=== PATIENT | male | born 1950 | race Caucasian/White ===

== ENCOUNTER → 2016-08-09 | Outpatient (CLI) | payer OTHER ==
--- NOTE | 2016-08-09 12:47 | EST ---
DATE OF SERVICE: 08/09/2016 AGE: 66Y SEX: M HT: 63" WT: 178 lbs. Protocol Daniel: X Other: Stress Stage: 2 Dur. of Exercise: 7:00 *Heart Rate Blood Pressure *Rest: 73 Rest: 148/94 * *Max. Achieved: 143 Maximum BP: 222/91 85% PMHR: 133 100% PMHR: 156 *METS: 8.3 INDICATIONS: Abnormal EKG. MEDICATIONS: Atorvastatin, Clonidine, acetaminophen, lamotrigine, lisinopril, metoprolol, sertraline, trazodone. Baseline EKG revealed a sinus mechanism with some baseline artifact. Patient walked on standard Daniel protocol for 7 minutes, achieved a maximum heart rate of 143 beats per minute, which is more than 85% of predicted maximal. He did not have any significant symptoms, ( ) chest discomfort but had shortness of breath. EKG did not reveal any ST segment changes to indicate ischemia. There was no arrhythmia. By EKG criteria, this is considered as a negative stress test with a hypertensive response to exercise. Patient did not have any subjective symptoms of angina. Exercise capacity was fair.
== END | disposition home or self-care (01) ==
LOC: RADNMMAIN 10:49
PROVIDERS: ATTEND Family Medicine
DX: R94.31 Abnormal electrocardiogram [ECG] [EKG] (principal); R06.02 Shortness of breath
CPT/HCPCS: 93017

== ENCOUNTER 2018-06-13 11:27 | Inpatient (IN) | payer MEDICARE, OTHER ==
--- NOTE | 2018-06-13 12:00 | ED ---
General Adult HPI - General Chief complaint: Psychiatric Symptoms Stated complaint: Mental health Time Seen by Provider: 06/13/18 11:30 Source: patient, family, RN notes reviewed Mode of arrival: ambulatory Limitations: no limitations - History of Present Illness Initial comments: This is a 68-year-old male who presents emergency Department complaining of depression and suicidal ideations. Patient states she's been depressed for 40+ years. Patient states he has stopped taking his depression medications few months ago. Patient states he is been feeling very suicidal for the last few days and thought he might actually do it and it was at this point time that his brought him into the emergency department. Patient denies any physical complaints today patient denies any issues that have come up in his life that are specifically cause him to be more suicidal. Patient states it's just an overall feeling of dissatisfaction with life and he would like to end it all. Patient has no previous attempts. Patient denies any alcohol use patient denies any drug use. - Related Data Home Medications Medication Instructions Recorded Confirmed Lisinopril 20 mg PO DIRECTED 06/13/18 06/13/18 Allergies Allergy/AdvReac Type Severity Reaction Status Date / Time No Known Allergies Allergy Verified 06/13/18 11:56 Review of Systems ROS Statement: Those systems with pertinent positive or pertinent negative responses have been documented in the HPI. ROS Other: All systems not noted in ROS Statement are negative. Past Medical History Past Medical History: Diabetes Mellitus, Hypertension, Osteoarthritis (OA), Sleep Apnea/CPAP/BIPAP Additional Past Medical History / Comment(s): PAST HX OF SLEEP APNEA-NO PROBLEM NOW, HX OF DIABETES-NO MEDS NOW, electric shock treatments for depression History of Any Multi-Drug Resistant Organisms: None Reported Past Surgical History: Hernia Repair, Joint Replacement, Orthopedic Surgery Additional Past Surgical History / Comment(s): 03/12/16 total R knee arthroplasty. Other surgical hx; ABDOMINAL HERNIA REPAIR , LEFT SHOULDER REPAIR, CRISTIAN INGUINAL HERNIA, TOTAL LEFT KNEE. Past Anesthesia/Blood Transfusion Reactions: No Reported Reaction Past Psychological History: Anxiety, Bipolar, Depression, Panic Disorder Smoking Status: Current every day smoker Past Alcohol Use History: None Reported - Past Family History Father Family Medical History: Deep Vein Thrombosis (DVT) Additional Family Medical History / Comment(s): alcoholism- age 50's Mother Additional Family Medical History / Comment(s): born w/ 1 lung, during childbirth. General Exam - General Exam Comments Initial Comments: GENERAL: Patient is well-developed and well-nourished. Patient is nontoxic and well- hydrated and is in no acute distress ENT: Neck is soft and supple. No significant lymphadenopathy is noted. Oropharynx is clear. Moist mucous membranes. EYES: The sclera were anicteric and conjunctiva were pink and moist. Extraocular movements were intact and pupils were equal round and reactive to light. Eyelids were unremarkable. PULMONARY: Unlabored respirations. Good breath sounds bilaterally. No audible rales rhonchi or wheezing was noted. CARDIOVASCULAR: There is a regular rate and rhythm without any murmurs gallops or rubs. ABDOMEN: Soft and nontender with normal bowel sounds. SKIN: Skin is clear with no lesions or rashes and otherwise unremarkable. NEUROLOGIC: Patient is alert and oriented x3. Cranial nerves II through XII are grossly intact. Motor and sensory are also intact. Normal speech, volume and content. MUSCULOSKELETAL: Normal extremities with adequate strength and full range of motion. LYMPHATICS: No significant lymphadenopathy is noted PSYCHIATRIC: Patient complains of being depressed and wanting to harm himself. Patient thinks today he might have actually tried to commit suicide. Limitations: no limitations Course Vital Signs 06/13/18 11:31 Temperature 98 F Pulse Rate 110 H Respiratory 18 Rate Blood Pressure 177/108 O2 Sat by Pulse 94 L Oximetry Medical Decision Making - Medical Decision Making EPS evaluated the patient and decided the patient needed to be admitted. - Lab Data Result diagrams: 06/13/18 12:09 06/13/18 12:09 Lab Results 06/13/18 06/13/18 06/13/18 Range/Units 11:53 12:09 12:09 WBC 10.8 H (3.8-10.6) k/uL RBC 5.62 (4.30-5.90) m/uL Hgb 17.3 (13.0-17.5) gm/dL Hct 53.9 H (39.0-53.0) % MCV 95.9 (80.0-100.0) fL MCH 30.8 (25.0-35.0) pg MCHC 32.2 (31.0-37.0) g/dL RDW 12.9 (11.5-15.5) % Plt Count 293 (150-450) k/uL Neutrophils % 66 % Lymphocytes % 24 % Monocytes % 7 % Eosinophils % 1 % Basophils % 1 % Neutrophils # 7.1 (1.3-7.7) k/uL Lymphocytes # 2.6 (1.0-4.8) k/uL Monocytes # 0.7 (0-1.0) k/uL Eosinophils # 0.1 (0-0.7) k/uL Basophils # 0.1 (0-0.2) k/uL Sodium 140 (137-145) mmol/L Potassium 4.5 (3.5-5.1) mmol/L Chloride 109 H (98-107) mmol/L Carbon Dioxide 21 L (22-30) mmol/L Anion Gap 10 mmol/L BUN 16 (9-20) mg/dL Creatinine 0.89 (0.66-1.25) mg/dL Est GFR (CKD-EPI)AfAm >90 (>60 ml/min/1.73 sqM) Est GFR (CKD-EPI)NonAf 89 (>60 ml/min/1.73 sqM) Glucose 100 H (74-99) mg/dL Calcium 9.5 (8.4-10.2) mg/dL Total Bilirubin 1.0 (0.2-1.3) mg/dL AST 21 (17-59) U/L ALT 27 (21-72) U/L Alkaline Phosphatase 83 (38-126) U/L Total Protein 7.2 (6.3-8.2) g/dL Albumin 4.1 (3.5-5.0) g/dL Urine Opiates Screen Not Detected (NotDetected) Ur Oxycodone Screen Not Detected (NotDetected) Urine Methadone Screen Not Detected (NotDetected) Ur Propoxyphene Screen Not Detected (NotDetected) Ur Barbiturates Screen Not Detected (NotDetected) U Tricyclic Antidepress Not Detected (NotDetected) Ur Phencyclidine Scrn Not Detected (NotDetected) Ur Amphetamines Screen Not Detected (NotDetected) U Methamphetamines Scrn Not Detected (NotDetected) U Benzodiazepines Scrn Not Detected (NotDetected) Urine Cocaine Screen Not Detected (NotDetected) U Marijuana (THC) Screen Not Detected (NotDetected) Disposition Clinical Impression: Suicidal ideation, Depression Disposition: ADMITTED IP TO THIS HOSP Referrals: Hossein Mccord DO [Primary Care Provider] - 1-2 days Time of Disposition: 15:30
[2018-06-13 12:35] LABS: Amphetamine Screen,Urine Not Detected (NotDetected); Barbiturate Screen,Urine Not Detected (NotDetected); Benzodiazepines Screen,Urine Not Detected (NotDetected); Cocaine Screen,Urine Not Detected (NotDetected); Methadone Screen, Urine Not Detected (NotDetected); Opiate Screen,Urine Not Detected (NotDetected); Oxycodone Screen, Urine Not Detected (NotDetected); Phencyclidine Screen,Urine Not Detected (NotDetected); Tricyclic Antidepressant,Urine Not Detected (NotDetected); Urn Cannabinoid Scrn Not Detected (NotDetected)
[2018-06-13 12:56] LABS: Basophils # (A) 0.1 k/uL (0-0.2); Basophils % (A) 1 %; Eosinophils # (A) 0.1 k/uL (0-0.7); Eosinophils % (A) 1 %; HCT 53.9 % (39.0-53.0); HGB 17.3 gm/dL (13.0-17.5); Lymphocytes # (A) 2.6 k/uL (1.0-4.8); Lymphocytes % (A) 24 %; MCH 30.8 pg (25.0-35.0); MCHC 32.2 g/dL (31.0-37.0); MCV 95.9 fL (80.0-100.0); Mean Platelet Volume 7.2; Monocytes # (A) 0.7 k/uL (0-1.0); Monocytes % (A) 7 %; Neutrophils # (A) 7.1 k/uL (1.3-7.7); Neutrophils % (A) 66 %; Platelet Count 293 k/uL (150-450); RBC 5.62 m/uL (4.30-5.90); RDW 12.9 % (11.5-15.5); WBC 10.8 k/uL (3.8-10.6)
[2018-06-13 13:09] LABS: Albumin 4.1 g/dL (3.5-5.0); Anion Gap 10 mmol/L; Blood Urea Nitrogen 16 mg/dL (9-20); Calcium 9.5 mg/dL (8.4-10.2); Carbon Dioxide 21 mmol/L (22-30); Chloride 109 mmol/L (98-107); Glucose 100 mg/dL (74-99); Sodium 140 mmol/L (137-145); Total Protein 7.2 g/dL (6.3-8.2)
[2018-06-13 13:12] LABS: ALT 27 U/L (21-72); AST 21 U/L (17-59); Alkaline Phosphatase 83 U/L (38-126); Potassium 4.5 mmol/L (3.5-5.1)
[2018-06-13] MEDS ORDERED: LORazepam 1 MG TAB PO STA ×2 (15:27→19:33)
[2018-06-13] MEDS: NICOTINE POLACRILEX 2 MG GUM BUCCAL PRN ×2 (16:47→22:16)
[2018-06-13] MEDS ORDERED: ACETAMINOPHEN TAB 325 MG TAB PO PRN (17:05)
[2018-06-13] MEDS ORDERED: LISINOPRIL 20 MG TAB PO SCH (17:15)
[2018-06-13] MEDS ORDERED: ZIPRASIDONE 20 MG VIAL IM PRN (19:34)
[2018-06-13] MEDS ORDERED: QUEtiapine 50 MG TAB PO STA (22:32)
[2018-06-13] MEDS: NICOTINE 21MG/24HR PATCH TRANSDERM SCH (23:04)
[2018-06-13] MEDS: TAMSULOSIN 0.4 MG CAP.ER.24H PO SCH (23:05)
[2018-06-13] MEDS: LISINOPRIL-HCTZ 10-12.5 MG 1 EACH TAB PO SCH (23:05)
--- NOTE | 2018-06-14 05:49 | CONS ---
CONSULTATION DATE OF CONSULTATION: 06/13/2018 REASON FOR CONSULTATION: Medical management requested by Dr. Brown. CONSULTATION: This is a 68-year-old patient of Dr. Mccord. His chronic stable medical conditions include hypertension, osteoarthritis, BPH. The patient lives with several family members including his son, son's girlfriend, and other grandchildren and other family member and patient is getting overwhelmed. His left the house as she had to take care of everybody and patient is getting very frustrated, depressed, suicidal, and therefore decided to come to the hospital. The patient has been smoking a pack a day. The patient ran out of his Flomax about 3 or 4 days ago, request the same. Breathing is stable. Appetite is fair. Just very agitated and does not want to go back there. REVIEW OF SYSTEMS: CONSTITUTIONAL: None. HEENT: None. RESPIRATORY: Occasional cough CARDIOVASCULAR: None. GASTROINTESTINAL: None. GENITOURINARY: None. MUSCULOSKELETAL: Arthritic pain in different joints. DERMATOLOGICAL: None. HEMATOLOGIC: None. LYMPHATIC: None. PSYCHIATRY: Anxious, depressed. NEUROLOGICAL: None. PAST MEDICAL HISTORY: Past medical history of diabetes, hypertension, osteoarthritis, also sleep apnea not a problem anymore. The patient has had a electric shocks for treatment of depression in the past. PAST SURGICAL HISTORY: Hernia repair, right total knee arthroplasty, abdominal hernia repair, left shoulder repair, bilateral inguinal hernia repair, total left knee repair. PAST PSYCH HISTORY: Bipolar disorder. Patient smokes a pack a day for over 45 years. Had a history of alcoholism in the remote past. Living with several family members. FAMILY HISTORY: Family history of alcoholism and DVT. HOME MEDICATIONS: List is unclear. PHYSICAL EXAMINATION: On examination, temperature 99.9, pulse 93, respiratory 18, blood pressure 163/105, repeat 144/95, pulse ox 91% on room air. GENERAL APPEARANCE: Well built, BMI 32.8, somewhat agitated. EYES: Pupils equal. Conjunctivae normal. HENT: External appearance of nose and ear normal. Oral cavity normal. NECK: JVD not raised. Mass not palpable. RESPIRATORY: Effort normal. Slightly decreased breath sounds. CARDIOVASCULAR: First and second sounds normal. No edema. ABDOMEN: Soft, nontender. Liver and spleen not palpable. LYMPHATIC: No lymph node palpable in the neck or axillae. PSYCHIATRY: Alert and oriented x3. Mood and affect very anxious appearing. NEUROLOGICAL: Pupils equal. Cranial nerves grossly intact. Power and sensation grossly intact. INVESTIGATIONS: White count 10.8, hemoglobin 17.3, potassium 4.5, BUN 16, creatinine 0.89. Urine drug screen negative. ASSESSMENT: 1. Essential hypertension, uncontrolled from not taking his medication. 2. Primary osteoarthritis. 3. Chronic nicotine dependence. Patient is a cigarette smoker. 4. Benign prostatic hypertrophy. PLAN: Will start the patient on lisinopril hydrochlorothiazide twice a day. Also start the patient on a baby aspirin. Start the patient on Flomax 0.4 mg q.h.s. The patient will be given a nicotine patch. Care was discussed with the patient. Questions were answered. Patient should follow up with Dr. Mccord upon discharge. Thank you . PHILIP / OLEGARION: [id number] /
[2018-06-14] MEDS: ASPIRIN 81 MG PO SCH (08:42)
[2018-06-14] MEDS: NICOTINE POLACRILEX 2 MG GUM BUCCAL PRN ×4 (08:43→20:52)
[2018-06-14] MEDS: LISINOPRIL-HCTZ 10-12.5 MG 1 EACH TAB PO SCH ×2 (08:43→20:49)
[2018-06-14 09:15] LABS: Basophils % (A) 0 %; Eosinophils # (A) 0.4 k/uL (0-0.7); Eosinophils % (A) 2 %; HCT 54.2 % (39.0-53.0); HGB 17.6 gm/dL (13.0-17.5); Lymphocytes # (A) 3.7 k/uL (1.0-4.8); Lymphocytes % (A) 24 %; MCH 31.6 pg (25.0-35.0); MCHC 32.5 g/dL (31.0-37.0); MCV 97.3 fL (80.0-100.0); Mean Platelet Volume 6.9; Monocytes % (A) 6 %; Neutrophils # (A) 10.2 k/uL (1.3-7.7); Neutrophils % (A) 66 %; Platelet Count 290 k/uL (150-450); RBC 5.57 m/uL (4.30-5.90); RDW 13.2 % (11.5-15.5); WBC 15.5 k/uL (3.8-10.6)
[2018-06-14 09:35] LABS: Albumin 4.1 g/dL (3.5-5.0); Calcium 9.5 mg/dL (8.4-10.2); Potassium 4.2 mmol/L (3.5-5.1); Total Bilirubin 0.9 mg/dL (0.2-1.3)
[2018-06-14] MEDS: DESVENLAFAXINE SUCCINATE 50 MG TAB.ER.24H PO SCH (10:19)
--- NOTE | 2018-06-14 11:01 | HP ---
HISTORY AND PHYSICAL DATE OF SERVICE/DICTATION: 06/14/2018 IDENTIFYING DATA: This patient is a 68-year-old , but , male who was admitted to the mental health unit through the emergency room for acute suicidal ideation. HISTORY OF PRESENT ILLNESS: The patient was admitted to the mental health unit last night for acute suicidal ideation. He presented with thoughts of shooting himself or stabbing himself. He reports that he has struggled with suicidal thoughts since his 20s, but they have become progressively worse lately. Sleep has been impaired where he is only getting 3 to 4 hours a night. Appetite has been stable. Energy has been fluctuating. In terms of tearfulness, he states he is "on the edge". He reports feeling completely hopeless and overwhelmed. He endorses feelings of nervousness all of the time. He indicates he has panic attacks while going into the grocery store. These are classic in nature with increased heart rate, shortness of breath, diaphoresis, and impending sense of doom. He is endorsing no hypomanic or manic symptoms. He is endorsing no auditory or visual hallucinations or any specific delusions. He denies having any firearms at home. Stressors include feelings of stagnation since retiring from [employer]. He states that he is also overwhelmed with too many family members living in his home. He states his recently from him and she has her own apartment just 2 days ago. She states his 40-year-old son lives with him in the basement, the 30-year-old son just recently moved out. They have a 16-year-old granddaughter living with them and a 21- year-old granddaughter living with them as well as that grandchild's mother. PAST PSYCHIATRIC HISTORY: The patient has had 5 to 6 inpatient admissions since 2018. He reports frequent suicidal thoughts, but no suicide attempts. He was last admitted to [facility] just several months ago. Prior to that, he was at [facility] getting ECT as an outpatient. He states he was working with Dr. Lockett and was told that he will have a full index course of treatments, but his treatment was discontinued after 3 treatments for unclear reasons as the patient explains it. He states there was no adverse event, but things were not better yet either. He has been on a multitude of psychotropic medications including Prozac, Paxil, Zoloft, Celexa, Lexapro, Cymbalta, Wellbutrin, Trileptal, Lamictal, Abilify, Seroquel, BuSpar. He states none of them have provided any benefit other than the Seroquel which he was given again last night, which helped with sleep. He does not recall being on either Effexor or Pristiq. At [facility] he was placed on Prozac. He states he took that for 8 to 9 weeks. It did not work and he discontinued the medication. PAST MEDICAL HISTORY: Hypertension treated with lisinopril hydrochlorothiazide. ALLERGIES: No known drug allergies. CHEMICAL DEPENDENCY HISTORY: He has a history of abusing alcohol for several years, but states he has been sober for 3-1/2 years. During the time, he was drinking heavily he states he would black out every time he drank. He reports no use of alcohol for 3-1/2 years. No use of marijuana or any other illicit drugs. He has never been placed in residential treatment for chemical dependency reasons. FAMILY PSYCHIATRIC HISTORY: He states that his sister is known to have anxiety. No completed suicides in the family. Interestingly, the patient has an identical twin brother but reports his brother has no mental health issues and is prescribed no psychotropic medications. FAMILY CHEMICAL DEPENDENCY HISTORY: He states his father was alcohol dependent. SOCIAL HISTORY: The patient is 68 years old. He has been for 30 years and for just 2 days. He has 2 children, both sons. He has 2 sisters and 2 brothers. He is originally from the [place] area and now lives in the [facility]. He has numerous family members living with him in his home. He states he feels overwhelmed by this and plans on letting the house go to [facility] just so he can get out of the situation. He is hoping he will be able to live with his in her apartment. 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 He has 11th grade education. He did serve in the [employer] for 2 years and had an honorable discharge. 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 LEGAL HISTORY: He was arrested for DUI approximately 4 years ago while operating a motorcycle. ABUSE HISTORY: None reported. MENTAL STATUS EXAM: The patient is a shorter stature, male, appearing his stated age. He is dressed in hospital gowns. He is actively chewing gum throughout our session. He shakes his legs as well. He reports his mood is depressed. He feels hopeless and overwhelmed. He has ongoing suicidal thoughts. Affect is constricted. He reports no homicidal ideation, intent, or plan. Thought process for the most part is linear. He demonstrates no tangential thinking, loose associations or flight of ideas. He endorses no auditory or visual hallucinations or any specific delusions. There is no observed evidence of psychosis. There is no evidence of current hypomanic or manic symptoms. He is oriented to person, place, and date. He is able to name the days of the week backwards. He demonstrates no verbal or physical aggressiveness. He demonstrates no involuntary repetitive movements. STRENGTHS: Presume support from spouse, willingness to receive voluntary treatment. WEAKNESSES: Overwhelming stressors at home. Refractory symptoms of depression. INTELLECT: Average. IMPRESSIONS: 1. Major depressive disorder, recurrent, severe, without psychosis, panic attacks, alcohol use disorder in sustained remission. 2. Hypertension. 3. Family stressors, recent separation from spouse. PLAN OF TREATMENT: The patient has been admitted to the mental health unit voluntarily. We reviewed his presenting symptoms and treatment options. We decided we would initiate Pristiq 50 mg daily as an antidepressant and we will continue Seroquel 50 mg at bedtime as an augmentation strategy, and to also help with sleep. He found the Seroquel very effective for sleep last evening. The patient has been seen by Dr. Reyes for routine history and physical exam. Social Work will meet with the patient to complete a psychosocial assessment and begin discharge planning. We will involve family and treatment and discharge planning as he will allow. We will monitor him for safety and encourage full participation in the milieu. MMODL / IJN: [id number] /
[2018-06-14] MEDS: TAMSULOSIN 0.4 MG CAP.ER.24H PO SCH (18:01)
[2018-06-14 20:46] LABS: Hemoglobin A1C 5.7 % (4.0-6.0)
[2018-06-14] MEDS: QUEtiapine 50 MG TAB PO SCH (20:49)
[2018-06-14] MEDS: NICOTINE 21MG/24HR PATCH TRANSDERM SCH (21:29)
[2018-06-15] MEDS: DESVENLAFAXINE SUCCINATE 50 MG TAB.ER.24H PO SCH (08:40)
[2018-06-15] MEDS: ASPIRIN 81 MG PO SCH (08:40)
[2018-06-15] MEDS: LISINOPRIL-HCTZ 10-12.5 MG 1 EACH TAB PO SCH ×2 (08:40→21:28)
[2018-06-15] MEDS: NICOTINE POLACRILEX 2 MG GUM BUCCAL PRN ×3 (08:50→19:26)
--- NOTE | 2018-06-15 12:51 | P.PN ---
Progress Note - Text Interval history: The patient is found in the hallway he follows me to an interview room. He states his mood is terrible and he wishes he was . He finds himself disappointed that his oldest son did not bring clothing up. The patient states he has been attending group. He states he was able to sleep throughout the night and appetite has been stable. He has no questions or concerns regarding his psychotropic medication. Mental status exam: The patient is alert he appears his stated age. He is dressed in hospital gowns. He is chewing gum throughout the session. He indicates his mood is terrible affect is congruent he reports ongoing suicidal thoughts. He endorses no homicidal ideation intent or plan. He endorses no a uditory or visual hallucinations or any specific delusions. He demonstrates no verbal or physical aggressiveness. Insight and judgment limited. No involuntary repetitive movements. Plan: The patient will continue on his current psychotropic medication. We will monitor him for safety. He is encouraged to continue participating in the milieu. He requires continued psychiatric hospitalization.
[2018-06-15] MEDS: TAMSULOSIN 0.4 MG CAP.ER.24H PO SCH (16:52)
[2018-06-15] MEDS: QUEtiapine 50 MG TAB PO SCH (21:25)
[2018-06-16] MEDS: LISINOPRIL-HCTZ 10-12.5 MG 1 EACH TAB PO SCH ×2 (08:07→19:59)
[2018-06-16] MEDS: DESVENLAFAXINE SUCCINATE 50 MG TAB.ER.24H PO SCH (08:08)
[2018-06-16] MEDS: ASPIRIN 81 MG PO SCH (08:08)
[2018-06-16] MEDS: NICOTINE POLACRILEX 2 MG GUM BUCCAL PRN ×4 (08:08→18:25)
[2018-06-16] MEDS: LORazepam 0.5 MG TAB PO PRN ×2 (09:32→23:13)
--- NOTE | 2018-06-16 09:34 | P.PN ---
Progress Note - Text Interval history: The patient is found at the front office associate follows me to an interview room. He indicates that he feels the same he still feels hopeless and suicidal. He feels overwhelmed by the stressor of having this house with family members living in it. He is pessimistic that the medication changes will work. At one point he becomes angry and states "we are done talking" and left the office. Just minutes later he re-presented to the office apologized and completed the interview. Mental status exam: The patient is dressed in his own clothing he has a disheveled appearance his hygiene is impaired there is a follow odor. He is chewing nicotine gum throughout the session. There is no shaking of his legs. He describes feeling anxious and restless. He indicates that's been present before this admission. He has ongoing suicidal thoughts with a plan of killing himself. He reports no thoughts of harming others. He maintains a flat affect. He demonstrates poor insight into our conversation. Suggestions for cognitive reframing are offered and he appears to struggle with receiving those. He demonstrates no verbal or physical aggressiveness other than leaving the room abruptly. He is oriented to day the week as . He knows the correct month and year he is aware of his current location. Plan: The patient remains severely depressed and reporting ongoing suicidal ideation. We reviewed his current medications. Again the discussed the option of pursuing ECT again. He indicates that he only had [address] [facility] with [address]. Anderson for unknown reasons. Typically an index course would be approximate 6 treatments. We will attempt to get records from that facility he states he is now more open minded to having ECT again. He is encouraged to participate in the milieu he is instructed to shower today. Vital signs reviewed.
[2018-06-16] MEDS: TAMSULOSIN 0.4 MG CAP.ER.24H PO SCH (17:29)
[2018-06-16 17:40] LABS: Appearance,Urine Clear (Clear); Bilirubin,Urine Negative (Negative); Blood,Urine Trace (Negative); Color,Urine Yellow; Glucose,Urine (UA) Negative (Negative); Ketones,Urine Negative (Negative); Leukocyte Esterase,Urine Small (Negative); Mucus,Urine Rare /hpf; Nitrite,Urine Negative (Negative); PH, Urine 5.5 (5.0-8.0); Protein,Urine Negative (Negative); RBC,Urine 2 /hpf (0-5); Specific Gravity,Urine 1.021 (1.001-1.035); Squamous Epithelial Cell,Urine <1 /hpf (0-4); Urobilinogen,Urine <2.0 mg/dL (<2.0); WBC,Urine 27 /hpf (0-5)
[2018-06-16] MEDS: QUEtiapine 50 MG TAB PO SCH (19:59)
[2018-06-17] MEDS: DESVENLAFAXINE SUCCINATE 50 MG TAB.ER.24H PO SCH (08:25)
[2018-06-17] MEDS: ASPIRIN 81 MG PO SCH (08:25)
[2018-06-17] MEDS: LISINOPRIL-HCTZ 10-12.5 MG 1 EACH TAB PO SCH ×2 (08:25→21:22)
[2018-06-17] MEDS: NICOTINE POLACRILEX 2 MG GUM BUCCAL PRN ×3 (08:39→14:59)
[2018-06-17] MEDS: LORazepam 0.5 MG TAB PO PRN (08:54)
--- NOTE | 2018-06-17 15:59 | P.PN ---
Progress Note - Text Progress Note Date: 06/17/18 Over history: Patient is seen in cross coverage today. He reports that he continues to have some thoughts of suicide but does feel safe here in the hospital. He talks about his coming to visit mina, he relates that she left him to go live with her son recently. He does not voice any adverse psychotropic medication side effects. Mental status exam: He is alert and cooperative with the interview. Speech is fluent, not rapid or pressured. Thought processes are organized. His mood is depressed. He admits to some ongoing thoughts of suicide but reports that he feels safe here in the hospital. He does not show any evidence of psychosis or agitation. Plan: Patient will be maintained on current psychotropic medication regimen. He will be monitored regarding any medication side effects and his ongoing response to treatment we'll continue to monitor regarding suicidal ideations.
[2018-06-17] MEDS: TAMSULOSIN 0.4 MG CAP.ER.24H PO SCH (17:26)
[2018-06-17] MEDS: QUEtiapine 50 MG TAB PO SCH (21:22)
[2018-06-18] MEDS: ASPIRIN 81 MG PO SCH (08:17)
[2018-06-18] MEDS: LISINOPRIL-HCTZ 10-12.5 MG 1 EACH TAB PO SCH ×2 (08:18→20:56)
[2018-06-18] MEDS: DESVENLAFAXINE SUCCINATE 50 MG TAB.ER.24H PO SCH (08:18)
[2018-06-18] MEDS: NICOTINE POLACRILEX 2 MG GUM BUCCAL PRN ×3 (08:59→19:45)
[2018-06-18] MEDS: LORazepam 0.5 MG TAB PO PRN (10:32)
[2018-06-18] MEDS: MAGNESIUM HYDROXIDE 2,400 MG/10 ML CUP PO PRN (13:37)
--- NOTE | 2018-06-18 14:15 | P.PN ---
Progress Note - Text Progress Note Date: 06/18/18 Interval history: Patient is seen again in cross coverage today. He seems to report that he is sleeping okay and eating pretty well. He does describe ongoing depression and says he feels more anxiety today. He does not seem to voice any specific adverse psychotropic medication side effects. He inquires regarding ECT and he is encouraged to continue to discuss this with his attending psychiatrist. He said he has received ECT in the past at [facility]. Mental status exam: He is alert and cooperative with the interview. His affect is restricted. His mood is depressed. He admits to some ongoing thoughts of suicide, makes a reference regarding to bang his head on the wall, but reports that he is able to be safe here in the hospital. He does not voice any thoughts of harm to other people. He does not verbalize any hallucinations and does not show any current agitation. Plan: We'll maintain current psychotropic medication regimen. Continue to monitor for any medication side effects. Continue to monitor regarding any suicidal ideations. Monitor his ongoing response to treatment
[2018-06-18] MEDS: TAMSULOSIN 0.4 MG CAP.ER.24H PO SCH (17:22)
[2018-06-18] MEDS: QUEtiapine 50 MG TAB PO SCH (20:56)
[2018-06-19] MEDS: NICOTINE POLACRILEX 2 MG GUM BUCCAL PRN ×3 (08:37→20:50)
[2018-06-19] MEDS: LISINOPRIL-HCTZ 10-12.5 MG 1 EACH TAB PO SCH ×2 (08:37→20:47)
[2018-06-19] MEDS: ASPIRIN 81 MG PO SCH (08:37)
[2018-06-19] MEDS: DESVENLAFAXINE SUCCINATE 50 MG TAB.ER.24H PO SCH ×2 (08:38→20:48)
[2018-06-19] MEDS: LORazepam 0.5 MG TAB PO PRN ×2 (08:39→20:49)
--- NOTE | 2018-06-19 13:14 | P.PN ---
Subjective Progress Note Date: 06/19/18 Principal diagnosis: major depressive disorder-severe with agitation Chart reviewed, discussed with nursing staff, discussed in team today and interviewed the patient in office. He states he severely depressed 10 out of 10 tense and irritable agitated unhappy grumpy and lonely. Objective - Vital Signs Vital signs: Vital Signs Temp 98.2 F 06/19/18 06:55 Pulse 84 06/19/18 06:55 Resp 14 06/19/18 06:55 BP 110/65 06/19/18 06:55 Pulse Ox 93 L 06/16/18 18:12 Intake & Output 06/18/18 06/19/18 06/19/18 18:59 06:59 18:59 Weight 83.6 kg - Labs CBC & Chem 7: 06/14/18 08:45 06/14/18 08:45 Labs: Microbiology - Last 24 Hours (Table) 06/17/18 20:12 Urine Culture - Final Urine,Clean Catch Assessment and Plan Assessment: This is a 68-year-old male who presents emergency Department complaining of depression and suicidal ideations. Patient states she's been depressed for 40+ years. Patient states he has stopped taking his depression medications few mon ths ago. Patient states he is been feeling very suicidal for the last few days and thought he might actually do it and it was at this point time that his brought him into the emergency department. Patient denies any physical complaints today patient denies any issues that have come up in his life that are specifically cause him to be more suicidal. Patient states it's just an overall feeling of dissatisfaction with life and he would like to end it all. Patient has no previous attempts. Patient denies any alcohol use patient denies any drug use. - Related Data Home Medications Medication Instructions Recorded Confirmed Lisinopril 20 mg PO DIRECTED 06/13/18 06/13/18 Allergies Allergy/AdvReac Type Severity Reaction Status Date / Time No Known Allergies Allergy Verified 06/13/18 11:56 Past Medical History Past Medical History: Diabetes Mellitus, Hypertension, Osteoarthritis (OA), Sleep Apnea/CPAP/BIPAP Additional Past Medical History / Comment(s): PAST HX OF SLEEP APNEA-NO PROBLEM NOW, HX OF DIABETES-NO MEDS NOW, electric shock treatments for depression History of Any Multi-Drug Resistant Organisms: None Reported Past Surgical History: Hernia Repair, Joint Replacement, Orthopedic Surgery Additional Past Surgical History / Comment(s): 03/12/16 total R knee a rthroplasty. Other surgical hx; ABDOMINAL HERNIA REPAIR , LEFT SHOULDER REPAIR, CRISTIAN INGUINAL HERNIA, TOTAL LEFT KNEE. Past Anesthesia/Blood Transfusion Reactions: No Reported Reaction Past Psychological History: Anxiety, Bipolar, Depression, Panic Disorder Smoking Status: Current every day smoker Past Alcohol Use History: None Reported - Past Family History Father Family Medical History: Deep Vein Thrombosis (DVT) Additional Family Medical History / Comment(s): alcoholism- age 50's Mother Additional Family Medical History / Comment(s): born w lung, duri ng childbirth. Mental status examination: This is a 68-year-old male who came hospital because he has recurrent depression. It had previous ECT only 3 at treatments and had to be stopped. He is dressed in [employer] slippers T-shirt and casual in appearance older than his stated age. Speech language is spontaneous expressive hard of hearing loud. Attitude and behavior guarded irritable withdrawn indifferent. Mood is depressed anxious irritable angry fearful pros helpless and helpless. Thought content within normal. Risk factors includes currently being suicidal but not homicidal. Perceptions within normal. Thought processes is concrete circumstantial and tangential nature. Concentration/attention is poor per observation and the patient and interview. Recent and remote memory are impaired. Intelligence is average. Judgment and insight is fair. (1) Major depressive disorder, recurrent episode with anxious distress Current Visit: Yes Status: Acute Code(s): F33.9 - MAJOR DEPRESSIVE DISORDER, RECURRENT, UNSPECIFIED SNOMED Code(s): 36512376 Plan: Plan is admitted to the mental health unit [address] [place] [address] on a voluntary basis. He is placed on 15 minute checks and unit usual protocol for the unit. He was started on Pristiq 50 mg and will increase his Pristiq to 100 mg, continues 50 of Seroquel at bedtime, add Lamictal 25 mg by mouth daily at bedtime for mood stability since he is extremely irritable and agitated and will add Mirapex 0.5 mg by mouth daily at bedtime for his restless leg syndrome. Time with Patient: Less than 30
[2018-06-19] MEDS: TAMSULOSIN 0.4 MG CAP.ER.24H PO SCH (17:46)
[2018-06-19] MEDS: QUEtiapine 50 MG TAB PO SCH (20:48)
[2018-06-19] MEDS ORDERED: lamoTRIgine 25 MG TAB PO SCH (21:00)
[2018-06-20] MEDS: LORazepam 0.5 MG TAB PO PRN (08:29)
[2018-06-20] MEDS: LISINOPRIL-HCTZ 10-12.5 MG 1 EACH TAB PO SCH ×2 (08:29→21:44)
[2018-06-20] MEDS: ASPIRIN 81 MG PO SCH (08:29)
[2018-06-20] MEDS: NICOTINE POLACRILEX 2 MG GUM BUCCAL PRN ×3 (08:29→17:56)
--- NOTE | 2018-06-20 12:51 | P.PN ---
Subjective Progress Note Date: 06/20/18 Principal diagnosis: major depressive disorder-severe with agitation Chart reviewed, discussed with nursing staff, discussed in team today and interviewed the patient in office. He states he severely depressed 10 out of 10 tense and irritable agitated unhappy grumpy and lonely. 06/20/2018: Chart reviewed, discussed with nursing staff in detail regarding his not interacting with [facility], and discussed in team and patient was interviewed in my office. He still appears flat angry disappointment in himself as far as not being able to go to good night sleep and still being depressed. He still remains with racing thoughts, panic attacks, and interrupted sleep. Objective - Vital Signs Vital signs: Vital Signs Temp 97.8 F 06/20/18 06:48 Pulse 79 06/20/18 06:48 Resp 16 06/20/18 06:48 BP 103/64 06/20/18 06:48 Pulse Ox 93 L 06/16/18 18:12 - Labs CBC & Chem 7: 06/14/18 08:45 06/14/18 08:45 Assessment and Plan Assessment: This is a 68-year-old male who presents emergency Department complaining of depression and suicidal ideations. Patient states she's been depressed for 40+ years. Patient states he has stopped taking his depression medications few months ago. Patient states he is been feeling very suicidal for the last few days and thought he might actually do it and it was at this point time that his brought him into the emergency department. Patient denies any physical c omplaints today patient denies any issues that have come up in his life that are specifically cause him to be more suicidal. Patient states it's just an overall feeling of dissatisfaction with life and he would like to end it all. Patient has no previous attempts. Patient denies any alcohol use patient denies any drug use. - Related Data Home Medications Medication Instructions Recorded Confirmed Lisinopril 20 mg PO DIRECTED 06/13/18 06/13/18 Allergies Allergy/AdvReac Type Severity Reaction Status Date / Time No Known Allergies Allergy Verified 06/13/18 11:56 Past Medical History Past Medical History: Diabetes Mellitus, Hypertension, Osteoarthritis (OA), Sleep Apnea/CPAP/BIPAP Additional Past Medical History / Comment(s): PAST HX OF SLEEP APNEA-NO PROBLEM NOW, HX OF DIABETES-NO MEDS NOW, electric shock treatments for depression History of Any Multi-Drug Resistant Organisms: None Reported Past Surgical History: Hernia Repair, Joint Replacement, Orthopedic Surgery Additional Past Surgical History / Comment(s): 03/12/16 total R knee arthroplasty. Other surgical hx; ABDOMINAL HERNIA REPAIR , LEFT SHOULDER REPAIR, CRISTIAN INGUINAL HERNIA, TOTAL LEFT KNEE. Past Anesthesia/Blood Transfusion Reactions: No Reported Reaction Past Psychological History: Anxiety, Bipolar, Depression, Panic Disorder Smoking Status: Current every day smoker Past Alcohol Use History: None Reported - Past Family History Father Family Medical History: Deep Vein Thrombosis (DVT) Additional Family Medical History / Comment(s): alcoholism- age 50's Mother Additional Family Medical History / Comment(s): born w/ lung, during childbirth. Mental status examination: This is a 68-year-old male who came hospital because he has recurrent depression. It had previous ECT only 3 at treatments and had to be stopped. He is dressed in [employer] slippers T-shirt and casual in appearance older than his stated age. Speech language is spontaneous expressive hard of hearing loud. Attitude and behavior guarded irritable withdrawn indifferent. Mood is depressed anxious irritable angry fearful pros helpless and helpless. Thought content within normal. Risk factors includes currently being suicidal but not homicidal. Perceptions within normal. Thought processes is concrete circumstantial and tangential nature. Concentration/attention is poor per observation and the patient and interview. Recent and remote memory are impaired. Intelligence is average. Judgment and insight is fair. 06/20/2018: This 68-year-old male still remains depressed, older than his stated age, speech is spontaneous expressive and hard of hearing and talk slowly, his depressed mood is 9 out of 10 today with racing thoughts. Thought content within normal. Records factors include currently being suicidal without a plan but not homicidal. Perceptions are within normal. Thought process is concrete and circumstantial and tangential at times. Concentration is fair today per observation and interview. Recent and remote memory are slowly improving. Intelligence is average. Judgment and insight are fair. (1) Major depressive disorder, recurrent episode with anxious distress Current Visit: Yes Status: Acute Code(s): F33.9 - MAJOR DEPRESSIVE DISORDER, RECURRENT, UNSPECIFIED SNOMED Code(s): 93216908 Plan: Plan is admitted to the mental health unit [address] [place] [address] on a voluntary basis. He is placed on 15 minute checks and unit usual protocol for the unit. He was started on Pristiq 50 mg and will increase his Pristiq to 100 mg, continues 50 of Seroquel at bedtime, add Lamictal 25 mg by mouth daily at bedtime for mood stability since he is extremely irritable and agitated and will add Mirapex 0.5 mg by mouth daily at bedtime for his restless leg syndrome. 06/20/2018: His Pristiq now is at 100 mg by mouth daily at bedtime, increase Lamictal to 50 mg by mouth daily at bedtime, added Mirapex 0.5 mg by mouth daily at bedtime for his restless leg syndrome. He complains of having right otitis media with drainage and will ask internal medicine to please evaluate.
[2018-06-20] MEDS: TAMSULOSIN 0.4 MG CAP.ER.24H PO SCH (17:56)
[2018-06-20] MEDS ORDERED: lamoTRIgine 25 MG TAB PO SCH (21:00)
[2018-06-20] MEDS: DESVENLAFAXINE SUCCINATE 50 MG TAB.ER.24H PO SCH (21:43)
[2018-06-20] MEDS: PRAMIPEXOLE 0.5 MG TAB PO SCH (21:44)
[2018-06-20] MEDS: QUEtiapine 50 MG TAB PO SCH (21:44)
[2018-06-21] MEDS: LORazepam 0.5 MG TAB PO PRN ×2 (00:03→08:49)
[2018-06-21] MEDS: LISINOPRIL-HCTZ 10-12.5 MG 1 EACH TAB PO SCH ×2 (08:18→21:56)
[2018-06-21] MEDS: ASPIRIN 81 MG PO SCH (08:18)
[2018-06-21] MEDS: NICOTINE POLACRILEX 2 MG GUM BUCCAL PRN ×2 (08:23→15:30)
--- NOTE | 2018-06-21 13:45 | P.PN ---
Subjective Progress Note Date: 06/21/18 Principal diagnosis: major depressive disorder-severe with agitation Chart reviewed, discussed with nursing staff, discussed in team today and interviewed the patient in office. He states he severely depressed 10 out of 10 tense and irritable agitated unhappy grumpy and lonely. 06/20/2018: Chart reviewed, discussed with nursing staff in detail regarding his not interacting with [facility], and discussed in team and patient was interviewed in my office. He still appears flat angry disappointment in himself as far as not being able to go to good night sleep and still being depressed. He still remains with racing thoughts, panic attacks, and interrupted sleep. 06/21/2018: Chart reviewed, discussed with nursing staff regarding concentration and interactions in the [facility]. Discussed in detail and team regarding patient and prognosis and disposition. Interviewed patient my office. He appears still flat angry disappointment in himself affect. He states that he did not get a good night's sleep last night. He is going to try to stay awake all day. Still remains suicidal Objective - Vital Signs Vital signs: Vital Signs Temp 97.9 F 06/21/18 06:57 Pulse 76 06/21/18 06:57 Resp 18 06/21/18 06:57 BP 117/56 06/21/18 06:57 Pulse Ox 93 L 06/16/18 18:12 - Labs CBC & Chem 7: 06/14/18 08:45 06/14/18 08:45 Assessment and Plan Assessment: This is a 68-year-old male who presents emergency Department complaining of depression and suicidal ideations. Patient states she's been depressed for 40+ years. Patient states he has stopped taking his depression medications few months ago. Patient states he is been feeling very suicidal for the last few days and thought he might actually do it and it was at this point time that his brought him into the emergency department. Patient denies any physical complaints today patient denies any issues that have come up in his life that are specifically cause him to be more suicidal. Patient states it's just an overall feeling of dissatisfaction with life and he would like to end it all. Patient has no previous attempts. Patient denies any alcohol use patient denies any drug use. - Related Data Home Medications Medication Instructions Recorded Confirmed Lisinopril 20 mg PO DIRECTED 06/13/18 06/13/18 Allergies Allergy/AdvReac Type Severity Reaction Status Date / Time No Known Allergies Allergy Verified 06/13/18 11:56 Past Medical History Past Medical History: Diabetes Mellitus, Hypertension, Osteoarthritis (OA), Sleep Apnea/CPAP/BIPAP Additional Past Medical History / Comment(s): PAST HX OF SLEEP APNEA-NO PROBLEM NOW, HX OF DIABETES-NO MEDS NOW, electric shock treatments for depression History of Any Multi-Drug Resistant Organisms: None Reported Past Surgical History: Hernia Repair, Joint Replacement, Orthopedic Surgery Additional Past Surgical History / Comment(s): 03/12/16 total R knee arthroplas ty. Other surgical hx; ABDOMINAL HERNIA REPAIR , LEFT SHOULDER REPAIR, CRISTIAN INGUINAL HERNIA, TOTAL LEFT KNEE. Past Anesthesia/Blood Transfusion Reactions: No Reported Reaction Past Psychological History: Anxiety, Bipolar, Depression, Panic Disorder Smoking Status: Current every day smoker Past Alcohol Use History: None Reported - Past Family History Father Family Medical History: Deep Vein Thrombosis (DVT) Additional Family Medical History / Comment(s): alcoholism- age 50's Mother Additional Family Medical History / Comment(s): born w/ 1 lung, during childbirth. Mental status examination: This is a 68-year-old male who came hospital because he has recurrent depression. It had previous ECT only 3 at treatments and had to be stopped. He is dressed in pajamas slippers T-shirt and casual in appearance older than his stated age. Speech language is spontaneous expressive hard of hearing loud. Attitude and behavior guarded irritable withdrawn indifferent. Mood is depressed anxious irritable angry fearful pros helpless and helpless. Thought content within normal. Risk factors includes currently being suicidal but not homicidal. Perceptions within normal. Thought processes is concrete circumstantial and tangential nature. Concentration/attention is poor per observation and the patient and interview. Recent and remote memory are impaired. Intelligence is average. Judgment and insight is fair. 06/20/2018: This 68-year-old male still remains depressed, older than his stated age, speech is spontaneous expressive and hard of hearing and talk slowly, his depressed mood is 9 out of 10 today with racing thoughts. Thought content within normal. Records factors include currently being suicidal without a plan but not homicidal. Perceptions are within normal. Thought process is concrete and circumstantial and tangential at times. Concentration is fair today per observation and interview. Recent and remote memory are slowly improving. Intelligence is average. Judgment and insight are fair. 06/21/2018: This 68-year-old male remains depressed and suicidal looks older than his stated stated age with spontaneous speech while chewing gum. He is extremely hard of hearing and talks slowly. States that he still has racing thoughts and describes depression as 8 out of 10. He still remains with s uicidal ideation. Concentration is fair per observation but didn't notice that he tends to forget what he said yesterday. Recent remote memory remain poor. Intelligence is average. Judgment and insight are fair. (1) Major depressive disorder, recurrent episode with anxious distress Current Visit: Yes Status: Acute Priority: Medium Code(s): F33.9 - MAJOR DEPRESSIVE DISORDER, RECURRENT, UNSPECIFIED SNOMED Code(s): 44567450 Plan: Plan is admitted to the mental health unit [address] [place] [address] on a voluntary basis. He is placed on 15 minute checks and unit usual protocol for the unit. He was started on Pristiq 50 mg and will increase his Pristiq to 100 mg, continues 50 of Seroquel at bedtime, add Lamictal 25 mg by mouth daily at bedtime for mood stability since he is extremely irritable and agitated and will add Mirapex 0.5 mg by mouth daily at bedtime for his restless leg syndrome. 06/20/2018: His Pristiq now is at 100 mg by mouth daily at bedtime, increase Lamictal to 50 mg by mouth daily at bedtime, added Mirapex 0.5 mg by mouth daily at bedtime for his restless leg syndrome. He complains of having left otitis media with drainage and will ask internal medicine to please evaluate. 06/21/2018: This Pristiq is not 100 mg by mouth daily at bedtime for an antidepressant, increase of his Lamictal 200 mg tonight for his mood stabilization, Mirapex 0.5 mg by mouth daily at bedtime for his restless leg syndrome. He has not been seen by internal medicine regarding his left ear otitis media. He remains on 15 minutes checks and usual [facility] therapeutic protocols including groups, individual therapy except. Also MRI of brain due for forgetfulness Time with Patient: Less than 30
[2018-06-21 13:47] VITALS: BMI 32.6
[2018-06-21] MEDS ORDERED: ALPRAZolam 1 MG TAB PO ONE (15:30)
--- NOTE | 2018-06-21 17:06 | MR ---
EXAMINATION TYPE: MR brain wo/w con DATE OF EXAM: 06/21/2018 COMPARISON: None HISTORY: Mental status changes TECHNIQUE: Multiplanar, multisequence images of the brain and brainstem is performed without and with IV contras t, utilizing 7.5 mL intravenous Gadavist . FINDINGS: There is some cerebral cortical atrophy. There is no mass effect nor midline shift. There i s no sign of intracranial hemorrhage. There is mild mucosal thickening in the left maxillary sinus. T he brain stem is intact. There is no evidence of a cortical infarct. There is no pathologic enhanceme nt. There are multiple white matter high signal foci around the lateral ventricles and the subcortical ce rebral hemispheres. The total number is approximately 25. There is some coalescence in the white franklin er of both occipital lobes. Most of the lesions measure 5 mm. The largest measures 15 x 7 mm in the r ight occipital lobe. There is a rounded 2.1 cm fluid signal mass at the posterior nasopharynx consistent with a Thornwaldt cyst. This is nonenhancing. Corpus callosum is intact. Sella turcica appears normal. There is normal contrast opacification of th e venous sinuses. IMPRESSION: Mild atrophy appropriate for age. Patchy white matter high signal nonenhancing foci in the subcortical white matter more likely related to chronic small vessel ischemia. Demyelinating disease is possible. 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 Minimal left maxillary sinusitis.
[2018-06-21] MEDS: TAMSULOSIN 0.4 MG CAP.ER.24H PO SCH (17:16)
[2018-06-21] MEDS ORDERED: lamoTRIgine 100 MG TAB PO SCH (21:00)
[2018-06-21] MEDS: DESVENLAFAXINE SUCCINATE 50 MG TAB.ER.24H PO SCH (21:55)
[2018-06-21] MEDS: PRAMIPEXOLE 0.5 MG TAB PO SCH (21:56)
[2018-06-21] MEDS: QUEtiapine 50 MG TAB PO SCH (21:56)
[2018-06-22] MEDS: LISINOPRIL-HCTZ 10-12.5 MG 1 EACH TAB PO SCH (07:54)
[2018-06-22] MEDS: ASPIRIN 81 MG PO SCH (07:55)
[2018-06-22] MEDS: LORazepam 0.5 MG TAB PO PRN (07:56)
[2018-06-22] MEDS: NICOTINE POLACRILEX 2 MG GUM BUCCAL PRN ×4 (10:13→21:36)
--- NOTE | 2018-06-22 12:26 | P.PN ---
Subjective Progress Note Date: 06/22/18 Principal diagnosis: major depressive disorder-severe with agitation Chart reviewed, discussed with nursing staff, discussed in team today and interviewed the patient in office. He states he severely depressed 10 out of 10 tense and irritable agitated unhappy grumpy and lonely. 06/20/2018: Chart reviewed, discussed with nursing staff in detail regarding his not interacting with [facility], and discussed in team and patient was interviewed in my office. He still appears flat angry disappointment in himself as far as not being able to go to good night sleep and still being depressed. He still remains with racing thoughts, panic attacks, and interrupted sleep. 06/21/2018: Chart reviewed, discussed with nursing staff regarding concentration and interactions in the [facility]. Discussed in detail and team regarding patient and prognosis and disposition. Interviewed patient my office. He appears still flat angry disappointment in himself affect. He states that he did not get a good night's sleep last night. He is going to try to stay awake all day. Still remains suicidal 06/22/2018: Chart reviewed, reviewed the MRI results indicating atrophy of cortical regions including temporal parietal, discussed with nursing staff and discussed in team. Patient is quite upset and interviewing today because his son took his car that may get impounded many as to go get it out of the impound. He tends to ruminate is quite angry, cannot focus away from this and precipitates more suicidal ideation. Objective - Vital Signs Vital signs: Vital Signs Temp 97.5 F L 06/22/18 06:44 Pulse 80 06/22/18 06:44 Resp 16 06/22/18 06:44 BP 123/73 06/22/18 06:44 Pulse Ox 93 L 06/16/18 18:12 Intake & Output 06/21/18 06/22/18 06/22/18 18:59 06:59 18:59 Weight 83.6 kg - Labs CBC & Chem 7: 06/14/18 08:45 06/14/18 08:45 Assessment and Plan Assessment: This is a 68-year-old male who presents emergency Department complaining of depression and suicidal ideations. Patient states she's been depressed for 40+ years. Patient states he has stopped taking his depression medications few m onths ago. Patient states he is been feeling very suicidal for the last few days and thought he might actually do it and it was at this point time that his brought him into the emergency department. Patient denies any physical complaints today patient denies any issues that have come up in his life that are specifically cause him to be more suicidal. Patient states it's just an overall feeling of dissatisfaction with life and he would like to end it all. Patient has no previous attempts. Patient denies any alcohol use patient denies any drug use. Mental status examination: This is a 68-year-old male who came hospital because he has recurrent depression. It had previous ECT only 3 at treatments and had to be stopped. He is dressed in [employer] slippers T-shirt and casual in appearance older than his stated age. Speech language is spontaneous expressive hard of hearing loud. Attitude and behavior guarded irritable withdrawn indifferent. Mood is depressed anxious irritable angry fearful pros helpless and helpless. Thought content within normal. Risk factors includes currently being suicidal but not homicidal. Perceptions within normal. Thought processes is concrete circumstantial and tangential nature. Concentration/attention is poor per obs ervation and the patient and interview. Recent and remote memory are impaired. Intelligence is average. Judgment and insight is fair. 06/20/2018: This 68-year-old male still remains depressed, older than his stated age, speech is spontaneous expressive and hard of hearing and talk slowly, his depressed mood is 9 out of 10 today with racing thoughts. Thought content within normal. Records factors include currently being suicidal without a plan but not homicidal. Perceptions are within normal. Thought process is concrete and circumstantial and tangential at times. Concentration is fair today per observation and interview. Recent and remote memory are slowly improving. Intelligence is average. Judgment and insight are fair. 06/21/2018: This 68-year-old male remains depressed and suicidal looks older than his stated stated age with spontaneous speech while chewing gum. He is extremely hard of hearing and talks slowly. States that he still has racing thoughts and describes depression as 8 out of 10. He still remains with suicidal ideation. Concentration is fair per observation but didn't notice that he tends to forget what he said yesterday. Recent remote memory remain poor. Intelligence is average. Judgment and insight are fair. 06/22/2018: This 68-year-old male remains depressed now 5 out of 10 and remains admitting suicidal. He spontaneous talk twice chewing his gum. He is extremely hard of hearing. We discussed his MRI results and he said will fix it explanation. Concentration is still fair but again through discussions came weaknesses lack of focus concentration. Recent remote memory remain poor. Intelligence is average. Judgment and insight are fair. (1) Major depressive disorder, recurrent episode with anxious distress Current Visit: Yes Status: Acute Priority: Medium Code(s): F33.9 - MAJOR DEPRESSIVE DISORDER, RECURRENT, UNSPECIFIED SNOMED Code(s): 77001573 Plan: Plan is admitted to the mental health unit [address] [place] [address] on a voluntary basis. He is placed on 15 minute checks and unit usual protocol for the unit. He was started on Pristiq 50 mg and will increase his Pristiq to 100 mg, continues 50 of Seroquel at bedtime, add Lamictal 25 mg by mouth daily at bedtime for mood stability since he is extremely irritable and agitated and will add Mirapex 0.5 mg by mouth daily at bedtime for his restless leg syndrome. 06/20/2018: His Pristiq now is at 100 mg by mouth daily at bedtime, increase Lamictal to 50 mg by mouth daily at bedtime, added Mirapex 0.5 mg by mouth daily at bedtime for his restless leg syndrome. He complains of having left otitis media with drainage and will ask internal medicine to please evaluate. 06/21/2018: This Pristiq is not 100 mg by mouth daily at bedtime for an antidepressant, increase of his Lamictal 200 mg tonight for his mood stabilization, Mirapex 0.5 mg by mouth daily at bedtime for his restless leg syndrome. He has not been seen by internal medicine regarding his left ear otitis media. He remains on 15 minutes checks and usual [facility] therapeutic protocols including groups, individual therapy except. Also MRI of brain due for forgetfulness. 06/22/2018: Will add Aricept for dementia 5 mg by mouth daily at bedtime. Remains on Pristiq 100 mg, Mirapex 0.5 mg by mouth daily at bedtime, and Lamictal is at 200 mg by mouth daily at bedtime for mood stability. MRI and states mild to moderate atrophy over frontal cortex and to a greater degree over temporal parietal region. Time with Patient: Less than 30
--- NOTE | 2018-06-22 12:58 | P.PN ---
Subjective On-call hospitalist covering for Dr. Reyes This is a pleasant 68 years old male with past medical history of essential hypertension, osteoarthritis, chronic nicotine dependence and benign prostatic hypertrophy. Been asked for medical consult on follow-up for his left ear and drainage. Patient is complaining of from [place] drainage from his left ear for the last 4-5 days. He denies ear pain or tinnitus. However he says that he has decreas ed hearing in his ear compared to before. On examination there is no tenderness in the movement of the left ear pinna however there is obvious purulent discharge coming out of his left ear . Patient also denies chest pain, no dyspnea. No change in urine or bowel habits. No headache. He is tolerating diet well, gait is normal. No change in bowel habits. No fever. He had MRI of the brain yesterday for psychiatric region which shows chronic small vessel ischemic disease and incidental Thornwaldt's cyst Objective - Vital Signs Vital signs: Vital Signs Temp 97.5 F L 06/22/18 06:44 Pulse 80 06/22/18 06:44 Resp 16 06/22/18 06:44 BP 123/73 06/22/18 06:44 Pulse Ox 93 L 06/16/18 18:12 Intake & Output 06/21/18 06/22/18 06/22/18 18:59 06:59 18:59 Weight 83.6 kg - Exam GENERAL: The patient is alert and oriented x3, not in any acute distress. Well developed, well nourished. HEENT: Pupils are round and equally reacting to light. EOMI. No scleral icterus. No conjunctival pallor. Normocephalic, atraumatic. No pharyngeal erythema. No thyromegaly. -Ear exam: Left ear there is no tenderness or erythema on the left pinna. There is obvious purulent discharge, aeroscope has been tried but the field was filled with purulent discharge CARDIOVASCULAR: S1 and S2 present. No murmurs, rubs, or gallops. PULMONARY: Chest is clear to auscultation, no wheezing or crackles. ABDOMEN: Soft, nontender, nondistended, normoactive bowel sounds. No palpable organomegaly. MUSCULOSKELETAL: No joint swelling or deformity. EXTREMITIES: No cyanosis, clubbing, or pedal edema. NEUROLOGICAL: Gross neurological examination did not reveal any focal deficits. SKIN: No rashes. - Labs CBC & Chem 7: 06/14/18 08:45 06/14/18 08:45 Assessment and Plan Assessment: acute suppurative left otitis media incidental Thornwaldt's cyst History of essential hypertension History of breast or arthritis Chronic nicotine dependence History of benign prostatic hypertrophy Plan: This is a pleasant 68 years old male with left ear infection. We'll start patient on Augmentin. Percent culture of the purulent discharge. I will call ENT to evaluate the patient more.Labs and medication were reviewed.. Continue same treatment. Continue with symptomatic treatment. Resume home medication. Monitor lytes and vitals. DVT and GI prophylaxis. Further recommendations of the clinical course of the patient DVT prophylaxis: Patient is mobile and low risk for DVT GI Prophylaxis: No need Thank you for consulting us, please feel free to contact us for any further question or clarification
[2018-06-22 13:05] LABS: Basophils # (A) 0.1 k/uL (0-0.2); Basophils % (A) 1 %; Eosinophils # (A) 0.3 k/uL (0-0.7); Eosinophils % (A) 3 %; HGB 17.4 gm/dL (13.0-17.5); Lymphocytes # (A) 2.5 k/uL (1.0-4.8); Lymphocytes % (A) 23 %; MCH 31.8 pg (25.0-35.0); MCHC 32.9 g/dL (31.0-37.0); MCV 96.7 fL (80.0-100.0); Mean Platelet Volume 6.7; Monocytes # (A) 0.7 k/uL (0-1.0); Monocytes % (A) 7 %; Neutrophils # (A) 7.3 k/uL (1.3-7.7); Neutrophils % (A) 66 %; Platelet Count 301 k/uL (150-450); RBC 5.48 m/uL (4.30-5.90); RDW 12.7 % (11.5-15.5)
[2018-06-22 13:22] LABS: Calcium 9.8 mg/dL (8.4-10.2); Potassium 4.8 mmol/L (3.5-5.1)
--- NOTE | 2018-06-22 13:58 | CT ---
EXAMINATION TYPE: CT mastoid wo con DATE OF EXAM: 06/22/2018 COMPARISON: Correlation MRI 06/21/2018 HISTORY: 68-year-old male mastoiditis, Bilateral ear pain. CT DLP: 150 mGycm. Automated Exposure Control for Dose Reduction was Utilized. TECHNIQUE: CT scan of internal auditory canal is performed without contrast, thin cut axial images ar e obtained, coronal reformatted images are also reviewed. FINDINGS: There is complete opacification of the left mastoid air cells and into the left middle ear cavity. Th e right mastoid air cells and right middle ear cavity appear clear. Scattered mild debris within the right external auditory canal. There is no osseous erosions of the fine bony septa of the left mastoid air cells. The middle ear ossicles are symmetric and unremarkable. The scutum is preserved bilaterally. The cochlea and the semicircular canals are symmetric and unrem arkable. Vestibular aqueduct and internal carotid canal appear unremarkable. In the posterior nasopharynx is a intermediate attenuation mass measuring 1.8 cm. Temporomandibular joints are maintained bilaterally. Scattered mild mucosal thickening within the par anasal sinuses. Visualized portion brain parenchyma shows generalized atrophy. IMPRESSION: 1. Ugalde opacification on the left suggesting otomastoiditis. No ossicular erosion or septal destructio n of the mastoid air cells. 2. 1.8 cm posterior nasopharyngeal mass. When correlating with the patient's recent MRI, suspect a la rge Tornwaldt cyst. This could potentially be contributing to eustachian tube obstruction. Consider d irect visualization to exclude any other etiology.
[2018-06-22] MEDS: AMOXIC-POT CLAV 875-125MG 1 EACH TAB PO SCH ×2 (14:24→21:34)
--- NOTE | 2018-06-22 16:04 | P.GSCN ---
History of Present Illness Consult date: 06/22/18 Reason for Consult: Otorrhea Requesting physician: Hossein Mccord History of present illness: This patient presents with bilateral otorrhea which is been problematic for about 4 months. He does have bilateral itching and diminished hearing. He picks at his ears frequently as a it and he finds that to be in the process of behavior issue. He has no ear pain per se denies any mastoid discomfort. Denies any tinnitus. Does admit to some hearing loss. His condition appears to be staying about the same and his right ear appears to be worse on the left. Review of Systems - Constitutional Reports lethargy - EENT Ears, nose, mouth and throat: Denies ant. neck pain - Cardiovascular Denies decreased exercise tolerance, Denies edema - Respiratory Denies cough with sputum - Gastrointestinal Denies change in bowel habits - Genitourinary Denies discharge - Musculoskeletal Denies atrophy - Integumentary Denies boils - Neurological Denies balance difficulties - Psychiatric Denies anhedonia - Endocrine Denies excessive sweating - Hematologic/Lymphatic Denies easy bleeding - Allergic/Immunologic Denies allergic rhinitis Past Medical History Past Medical History: Diabetes Mellitus, Hypertension, Osteoarthritis (OA), Sleep Apnea/CPAP/BIPAP Additional Past Medical History / Comment(s): PAST HX OF SLEEP APNEA-NO PROBLEM NOW, HX OF DIABETES-NO MEDS NOW, electric shock treatments for depression History of Any Multi-Drug Resistant Organisms: None Reported Past Surgical History: Hernia Repair, Joint Replacement, Orthopedic Surgery Additional Past Surgical History / Comment(s): 03/12/16 total R knee arthroplasty. Other surgical hx; ABDOMINAL HERNIA REPAIR , LEFT SHOULDER REPAIR, CRISTIAN INGUINAL HERNIA, TOTAL LEFT KNEE. Past Anesthesia/Blood Transfusion Reactions: No Reported Reaction Past Psychological History: Anxiety, Bipolar, Depression, Panic Disorder Additional Psychological History / Comment(s): chemical imbalance, STATES NERVOUS BREAKDOWN WITH SHOCK THERAPY IN HIS 20'S. Smoking Status: Current every day smoker Past Alcohol Use History: None Reported Additional Past Alcohol Use History / Comment(s): STATES HX OF ALCOHOLISM. STA RTED SMOKING 1968. SMOKES 1 PPD. SMOKING FOR 47 YEARS. Past Drug Use History: None Reported - Past Family History Father Family Medical History: Deep Vein Thrombosis (DVT) Additional Family Medical History / Comment(s): alcoholism- age 50's Mother Additional Family Medical History / Comment(s): born w/ 1 lung, during childbirth. Medications and Allergies Home Medications Medication Instructions Recorded Confirmed Type Lisinopril 20 mg PO DIRECTED 06/13/18 06/13/18 History Allergies Allergy/AdvReac Type Severity Reaction Status Date / Time No Known Allergies Allergy Verified 06/13/18 17:32 Surgical - Exam Osteopathic Statement: *. No significant issues noted on an osteopathic structural exam other than those noted in the History and Physical/Consult. Vital Signs Temp Pulse Resp BP Pulse Ox 98 F 110 H 18 177/108 94 L 06/13/18 11:31 06/13/18 11:31 06/13/18 11:31 06/13/18 11:31 06/13/18 11:31 - General well developed, well nourished, no distress - Eyes PERRL, normal ocular movement - ENT Head is normocephalic the face is symmetric there's no abnormal movements. No tenderness to the sinuses are mastoids is no nodules or eruptions or parasites on scalp. Otologic examination reveals bilateral dark-colored purulence from both ears with the left ear purulence is worse than the right. There is a perforation to the left tympanic membrane. Neck shows no tumors or masses. - Neck no masses, no bruits, trachea midline, no lymphadectomy - Respiratory normal expansion - Integumentary no rash, no growths - Musculoskeletal normal gait, normal posture - Psychiatric oriented to time, oriented to person, oriented to place, speech is normal Results - Labs 06/22/18 12:40 06/22/18 12:40 Abnormal Lab Results - Last 24 Hours (Table) 06/22/18 06/22/18 Range/Units 12:40 12:40 WBC 11.0 H (3.8-10.6) k/uL BUN 29 H (9-20) mg/dL Glucose 104 H (74-99) mg/dL Diabetes panel 06/22/18 Range/Units 12:40 Sodium 140 (137-145) mmol/L Potassium 4.8 (3.5-5.1) mmol/L Chloride 104 (98-107) mmol/L Carbon Dioxide 27 (22-30) mmol/L BUN 29 H (9-20) mg/dL Creatinine 1.10 (0.66-1.25) mg/dL Glucose 104 H (74-99) mg/dL Calcium 9.8 (8.4-10.2) mg/dL Calcium panel 06/22/18 Range/Units 12:40 Calcium 9.8 (8.4-10.2) mg/dL Pituitary panel 06/22/18 Range/Units 12:40 Sodium 140 (137-145) mmol/L Potassium 4.8 (3.5-5.1) mmol/L Chloride 104 (98-107) mmol/L Carbon Dioxide 27 (22-30) mmol/L BUN 29 H (9-20) mg/dL Creatinine 1.10 (0.66-1.25) mg/dL Glucose 104 H (74-99) mg/dL Calcium 9.8 (8.4-10.2) mg/dL Adrenal panel 06/22/18 Range/Units 12:40 Sodium 140 (137-145) mmol/L Potassium 4.8 (3.5-5.1) mmol/L Chloride 104 (98-107) mmol/L Carbon Dioxide 27 (22-30) mmol/L BUN 29 H (9-20) mg/dL Creatinine 1.10 (0.66-1.25) mg/dL Glucose 104 H (74-99) mg/dL Calcium 9.8 (8.4-10.2) mg/dL Assessment and Plan (1) Chronic suppurative otitis media of both ears Current Visit: Yes Status: Acute Code(s): H66.3X3 - OTHER CHRONIC SUPPURATIVE OTITIS MEDIA, BILATERAL SNOMED Code(s): 50047764 (2) Tympanic membrane perforation Current Visit: Yes Status: Acute Code(s): H72.90 - UNSP PERFORATION OF TYMPANIC MEMBRANE, UNSPECIFIED EAR SNOMED Code(s): 50815152 (3) Conductive hearing loss Current Visit: Yes Status: Acute Code(s): H90.2 - CONDUCTIVE HEARING LOSS, UNSPECIFIED SNOMED Code(s): 74141305 Plan: This patient has a large amount of purulence coming from the ears and cultures and sensitivities were ordered. In place the patient on ofloxacin drops and a follow-up in the office is recommended. A CAT scan of the upper bones has also been ordered. The patient has a tympanic membrane perforation and we will obtain audiometric evaluation to see the extent of his hearing loss. C holesteatoma needs to be ruled out. Again, further more specific recommendations will be made when I see him as an outpatient.
[2018-06-22] MEDS: TAMSULOSIN 0.4 MG CAP.ER.24H PO SCH (17:10)
[2018-06-22] MEDS ORDERED: lamoTRIgine 100 MG TAB PO SCH (21:00)
[2018-06-22] MEDS: OFLOXACIN 0.3% OPHTH DROPS 5 ML BOTTLE BOTH EARS SCH (21:32)
[2018-06-22] MEDS: DONEPEZIL 5 MG TAB PO SCH (21:33)
[2018-06-22] MEDS: DESVENLAFAXINE SUCCINATE 50 MG TAB.ER.24H PO SCH (21:33)
[2018-06-22] MEDS: PRAMIPEXOLE 0.5 MG TAB PO SCH (21:34)
[2018-06-22] MEDS: QUEtiapine 50 MG TAB PO SCH (21:34)
[2018-06-23] MEDS: LISINOPRIL-HCTZ 10-12.5 MG 1 EACH TAB PO SCH ×3 (06:16→21:21)
[2018-06-23] MEDS: AMOXIC-POT CLAV 875-125MG 1 EACH TAB PO SCH ×2 (08:32→22:08)
[2018-06-23] MEDS: ASPIRIN 81 MG PO SCH (08:32)
[2018-06-23] MEDS: OFLOXACIN 0.3% OPHTH DROPS 5 ML BOTTLE BOTH EARS SCH ×2 (08:32→21:22)
[2018-06-23] MEDS: NICOTINE POLACRILEX 2 MG GUM BUCCAL PRN ×3 (08:32→20:41)
[2018-06-23] MEDS: LORazepam 0.5 MG TAB PO PRN ×2 (08:34→21:23)
[2018-06-23] MEDS: MAGNESIUM HYDROXIDE 2,400 MG/10 ML CUP PO PRN (14:33)
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
[2018-06-23] MEDS: TAMSULOSIN 0.4 MG CAP.ER.24H PO SCH (16:27)
[2018-06-23] MEDS: QUEtiapine 100 MG TAB PO SCH (21:20)
[2018-06-23] MEDS: lamoTRIgine 100 MG TAB PO SCH (21:20)
[2018-06-23] MEDS: DONEPEZIL 5 MG TAB PO SCH (21:20)
[2018-06-23] MEDS: PRAMIPEXOLE 1 MG TAB PO SCH (21:21)
[2018-06-24] MEDS: DESVENLAFAXINE SUCCINATE 50 MG TAB.ER.24H PO SCH (08:43)
[2018-06-24] MEDS: LISINOPRIL-HCTZ 10-12.5 MG 1 EACH TAB PO SCH ×2 (08:44→21:51)
[2018-06-24] MEDS: ASPIRIN 81 MG PO SCH (08:44)
[2018-06-24] MEDS: lamoTRIgine 100 MG TAB PO SCH ×2 (08:44→21:50)
[2018-06-24] MEDS: AMOXIC-POT CLAV 875-125MG 1 EACH TAB PO SCH ×2 (08:44→21:50)
[2018-06-24] MEDS: NICOTINE POLACRILEX 2 MG GUM BUCCAL PRN ×3 (08:45→21:11)
[2018-06-24] MEDS: LORazepam 0.5 MG TAB PO PRN (08:45)
[2018-06-24] MEDS: OFLOXACIN 0.3% OPHTH DROPS 5 ML BOTTLE BOTH EARS SCH ×2 (08:53→21:52)
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
[2018-06-24] MEDS: TAMSULOSIN 0.4 MG CAP.ER.24H PO SCH (17:42)
[2018-06-24] MEDS: QUEtiapine 100 MG TAB PO SCH (21:49)
[2018-06-24] MEDS: DONEPEZIL 5 MG TAB PO SCH (21:51)
[2018-06-24] MEDS: PRAMIPEXOLE 1 MG TAB PO SCH (21:51)
[2018-06-25 07:06] VITALS: RESP 18
[2018-06-25] MEDS: LISINOPRIL-HCTZ 10-12.5 MG 1 EACH TAB PO SCH ×2 (08:24→21:55)
[2018-06-25] MEDS: ASPIRIN 81 MG PO SCH (08:24)
[2018-06-25] MEDS: DESVENLAFAXINE SUCCINATE 50 MG TAB.ER.24H PO SCH (08:24)
[2018-06-25] MEDS: AMOXIC-POT CLAV 875-125MG 1 EACH TAB PO SCH (08:24)
[2018-06-25] MEDS: lamoTRIgine 100 MG TAB PO SCH ×2 (08:24→21:55)
[2018-06-25] MEDS: OFLOXACIN 0.3% OPHTH DROPS 5 ML BOTTLE BOTH EARS SCH ×2 (08:25→21:54)
[2018-06-25] MEDS ORDERED: LEVOFLOXACIN 500 MG TAB PO STA (10:18)
[2018-06-25] MEDS ORDERED: CIPROFLOXACIN HCL 500 MG TAB PO SCH (10:30)
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
[2018-06-25] MEDS: MAGNESIUM HYDROXIDE 2,400 MG/10 ML CUP PO PRN (13:06)
[2018-06-25] MEDS: NICOTINE POLACRILEX 2 MG GUM BUCCAL PRN ×2 (13:06→18:26)
[2018-06-25] MEDS: TAMSULOSIN 0.4 MG CAP.ER.24H PO SCH (17:23)
[2018-06-25] MEDS: MAG HYDROX/AL HYDROX/SIMETH 30 ML CUP PO PRN (20:05)
[2018-06-25] MEDS: DONEPEZIL 5 MG TAB PO SCH (21:54)
[2018-06-25] MEDS: QUEtiapine 100 MG TAB PO SCH (21:54)
[2018-06-25] MEDS: PRAMIPEXOLE 1 MG TAB PO SCH (21:55)
[2018-06-26] MEDS: LORazepam 0.5 MG TAB PO PRN (04:09)
[2018-06-26 07:23] VITALS: TEMP 97.7
[2018-06-26] MEDS: OFLOXACIN 0.3% OPHTH DROPS 5 ML BOTTLE BOTH EARS SCH (07:47)
[2018-06-26] MEDS: DESVENLAFAXINE SUCCINATE 50 MG TAB.ER.24H PO SCH (07:47)
[2018-06-26] MEDS: ASPIRIN 81 MG PO SCH (07:48)
[2018-06-26] MEDS: LISINOPRIL-HCTZ 10-12.5 MG 1 EACH TAB PO SCH (07:48)
[2018-06-26] MEDS: lamoTRIgine 100 MG TAB PO SCH (07:48)
[2018-06-26] MEDS: MAG HYDROX/AL HYDROX/SIMETH 30 ML CUP PO PRN (07:49)
[2018-06-26 07:51] VITALS: BP 129/75; PULSE 107
[2018-06-26] MEDS ORDERED: LEVOFLOXACIN 500 MG TAB PO SCH (09:00)
--- NOTE | 2018-06-26 11:18 | P.DS ---
Providers Date of admission: 06/13/18 15:52 Expected date of discharge: 06/26/18 Attending physician: Genaro Brown DO Consults: 06/13/18 17:05 Consult Physician Routine Consulting Provider: Duog Reyes Consult Reason/Comments: Left ear otitis media Do you want consulting provider notified?: Yes 06/21/18 18:49 Consult Physician Routine Consulting Provider: Doug Reyes Consult Reason/Comments: re see regarding ear pain and drainage. Do you want consulting provider notified?: Yes 06/22/18 12:50 Consult Physician Urgent Consulting Provider: Armin Medina Consult Reason/Comments: pt has drainage of the left ear, with odor, and culture is ordered Do you want consulting provider notified?: Yes Primary care physician: Hossein Mccord - Discharge Diagnosis(es) (1) Major depressive disorder, recurrent episode with anxious distress This is a 68-year-old male who presents emergency Department complaining of depression and suicidal ideations. Patient states she's been depressed for 40+ years. Patient states he has stopped taking his depression medications few months ago. Patient states he is been feeling very suicidal for the last few days and thought he might actually do it and it was at this point time that his brought him into the emergency department. Patient denies any physical complaints today patient denies any issues that have come up in his life that are specifically cause him to be more suicidal. Patient states it's just an overall feeling of dissatisfaction with life and he would like to end it all. Patient has no previous attempts. Patient denies any alcohol use patient denies any drug use. - Related Data Home Medications Medication Instructions Recorded Confirmed Lisinopril 20 mg PO DIRECTED 06/13/18 06/13/18 Allergies Allergy/AdvReac Type Severity Reaction Status Date / Time No Known Allergies Allergy Verified 06/13/18 11:56 Past Medical History Past Medical History: Diabetes Mellitus, Hypertension, Osteoarthritis (OA), Sleep Apnea/CPAP/BIPAP Additional Past Medical History / Comment(s): PAST HX OF SLEEP APNEA-NO PROBLEM NOW, HX OF DIABETES-NO MEDS NOW, electric shock treatments for depression History of Any Multi-Drug Resistant Organisms: None Reported Past Surgical History: Hernia Repair, Joint Replacement, Orthopedic Surgery Additional Past Surgical History / Comment(s): 03/12/16 total R knee arthroplasty. Other surgical hx; ABDOMINAL HERNIA REPAIR , LEFT SHOULDER REPAIR, CRISTIAN INGUINAL HERNIA, TOTAL LEFT KNEE. Past Anesthesia/Blood Transfusion Reactions: No Reported Reaction Past Psychological History: Anxiety, Bipolar, Depression, Panic Disorder Smoking Status: Current every day smoker Past Alcohol Use History: None Reported - Past Family History Father Family Medical History: Deep Vein Thrombosis (DVT) Additional Family Medical History / Comment(s): alcoholism- age 50's Mother Additional Family Medical History / Comment(s): born w/ 1 lung, during childbirth. Current Visit: Yes Status: Acute Priority: Low (2) Early onset Alzheimer's dementia Current Visit: Yes Status: Acute Priority: Low (3) Left otitis media with spontaneous rupture of eardrum Current Visit: Yes Status: Acute Priority: Low (4) Insomnia Current Visit: Yes Status: Acute Priority: Medium (5) Tympanic membrane perforation Current Visit: Yes Status: Acute Priority: Medium (6) Restless legs syndrome Current Visit: Yes Status: Acute Priority: Medium Hospital Course: Plan is admitted to the mental health unit [address] [place] [address] on a voluntary basis. He is placed on 15 minute checks and unit usual protocol for the unit. He was started on Pristiq 50 mg and will increase his Pristiq to 100 mg, continues 50 of Seroquel at bedtime, add Lamictal 25 mg by mouth daily at bedtime for mood stability since he is extremely irritable and agitated and will add Mirapex 0.5 mg by mouth daily at bedtime for his restless leg syndrome. 06/20/2018: His Pristiq now is at 100 mg by mouth daily at bedtime, increase Lamictal to 50 mg by mouth daily at bedtime, added Mirapex 0.5 mg by mouth daily at bedtime for his restless leg syndrome. He complains of having left otitis media with drainage and will ask internal medicine to please evaluate. 06/21/2018: This Pristiq is not 100 mg by mouth daily at bedtime for an antidepressant, increase of his Lamictal 200 mg tonight for his mood stabilization, Mirapex 0.5 mg by mouth daily at bedtime for his restless leg syndrome. He has not been seen by internal medicine regarding his left ear otitis media. He remains on 15 minutes checks and usual [facility] therapeutic protocols including groups, individual therapy except. Also MRI of brain due for forgetfulness. 06/22/2018: Will add Aricept for dementia 5 mg by mouth daily at bedtime. Remains on Pristiq 100 mg, Mirapex 0.5 mg by mouth daily at bedtime, and Lamictal is at 200 mg by mouth daily at bedtime for mood stability. MRI and states mild to moderate atrophy over frontal cortex and to a greater degree over temporal parietal region. 06/23/2018: Will changed Pristiq to a.m. dosing 100 mg, will increase Mirapex to 1 mg by mouth daily at bedtime since he hadn't restless leg that disturbed him last night and poor sleep whereby I will increase his Seroquel to 150 mg by mouth daily at bedtime. He still has racing thoughts and will increase his Lamictal to 200 mg twice a day. 15 minute checks as usual protocol for the psychiatric unit. 06/24/2018: Pristiq was given this morning without incident 100 mg. Mirapex 1 mg at bedtime and Seroquel 150 mg give him better sleep quality. He states that his racing thoughts have decreased after the increase of Lamictal 200 mg twice a day. He remains on 15 minute checks as usual protocol for the mental health unit and he is integrating in [facility]. Appropriate manner 06/25/2018.Pristiq was given this morning without incident 100 mg. Mirapex 1 mg at bedtime and Seroquel 150 mg give him better sleep quality. He states that his racing thoughts have decreased after the increase of Lamictal 200 mg twice a day. He remains on 15 minute checks as usual protocol for the mental health unit and he is integrating in [facility]. Appropriate manner Mental status examination time of discharge: The patient presents alert, pleasant, and cooperative. There calmly seated without any agitated behavior. [He] reports that [his] mood is good. Affect is congruent and euthymic. [He] deny having any suicidal or homicidal ideation intent or plan. [He] denies any auditory or visual hallucinations. There is no evidence of any delusional thought content. [His] thought process is linear and goal-directed. [His] speech is fluent and nonpressured. [His] memory and concentration is grossly intact for the purposes of this session. Patient Condition at Discharge: Stable Plan - Discharge Summary Discharge Rx Participant: No New Discharge Prescriptions: New Ofloxacin 0.3% Ophth Soln [Ocuflox Ophth Soln] 5 drops BOTH EARS BID 15 Days #10 bottle Amoxicillin/Potassium Clav [Augmentin 875-125 Tablet] 1 each PO Q12HR 14 Days #28 tab Donepezil [Aricept] 5 mg PO HS 30 Days #30 tab Aspirin 81 mg PO DAILY chew Tamsulosin [Flomax] 0.4 mg PO PC-SUPPER 30 Days #30 cap.er.24h lamoTRIgine [LaMICtal] 200 mg PO BID 30 Days #120 tab Levofloxacin [Levaquin] 500 mg PO 0900 10 Days #10 tab Pramipexole [Mirapex] 1 mg PO 2100 30 Days #30 tab Ofloxacin 0.3% Ophth Soln [Ocuflox Ophth Soln] 7 drops BOTH EARS BID 10 Days #1 ml Desvenlafaxine Succinate [Pristiq ER] 100 mg PO DAILY 30 Days #60 tab.er.24h QUEtiapine [SEROquel] 150 mg PO 2100 30 Days #45 tab Lisinopril-Hctz 10-12.5 mg [Zestoretic 10-12.5] 1 each PO BID 30 Days #60 tab Discontinued Lisinopril 20 mg PO DIRECTED Discharge Medication List Amoxicillin/Potassium Clav [Augmentin 875-125 Tablet] 1 each PO Q12HR 14 Days #28 tab 06/22/18 [Rx] Ofloxacin 0.3% Ophth Soln [Ocuflox Ophth Soln] 5 drops BOTH EARS BID 15 Days #10 bottle 06/22/18 [Rx] Aspirin 81 mg PO DAILY chew 06/26/18 [Rx] Desvenlafaxine Succinate [Pristiq ER] 100 mg PO DAILY 30 Days #60 tab.er.24h 06/26/18 [Rx] Donepezil [Aricept] 5 mg PO HS 30 Days #30 tab 06/26/18 [Rx] Levofloxacin [Levaquin] 500 mg PO 0900 10 Days #10 tab 06/26/18 [Rx] Lisinopril-Hctz 10-12.5 mg [Zestoretic 10-12.5] 1 each PO BID 30 Days #60 tab 06/26/18 [Rx] Ofloxacin 0.3% Ophth Soln [Ocuflox Ophth Soln] 7 drops BOTH EARS BID 10 Days #1 ml 06/26/18 [Rx] Pramipexole [Mirapex] 1 mg PO 2100 30 Days #30 tab 06/26/18 [Rx] QUEtiapine [SEROquel] 150 mg PO 2100 30 Days #45 tab 06/26/18 [Rx] Tamsulosin [Flomax] 0.4 mg PO PC-SUPPER 30 Days #30 cap.er.24h 06/26/18 [Rx] lamoTRIgine [LaMICtal] 200 mg PO BID 30 Days #120 tab 06/26/18 [Rx] Follow up Appointment(s)/Referral(s): Armin Medina DO [Doctor of Osteopathic Medicine] - 1 Week (please call office prior to d/c, to obtain appointment.) Hossein Mccord DO [Primary Care Provider] - 1-2 days Patient Instructions/Handouts: Depression (DC), Suicide Prevention (DC) Activity/Diet/Wound Care/Special Instructions: Follow up with Dr Medina for your mastoiditis, phone [phone] Keep water out of ears Use ear drops twice a day until you see Dr Medina Bring the CT films on CD disk with you when you see him (ct mastoid) CALL OFFICE TO MAKE APPOINTMENT PRIOR TO DISCHARGE Discharge Disposition: HOME SELF-CARE
== END 2018-06-26 12:47 | disposition home or self-care (01) | DRG 885 ==
LOC: EC 11:27 → 3MHU 15:52
PROVIDERS: ADMIT Psychiatry & Neurology Psychiatry; ATTEND Psychiatry & Neurology Psychiatry
DX: F33.2 Major depressive disorder, recurrent severe without psychotic features (principal); R45.851 Suicidal ideations; E11.9 Type 2 diabetes mellitus without complications; G30.0 Alzheimer's disease with early onset; F02.80 Dementia in other diseases classified elsewhere, unspecified severity, without behavioral disturbance, psychotic disturbance, mood disturbance, and anxiety; F17.210 Nicotine dependence, cigarettes, uncomplicated; F41.0 Panic disorder [episodic paroxysmal anxiety]; G25.81 Restless legs syndrome; G47.30 Sleep apnea, unspecified; H66.002 Acute suppurative otitis media without spontaneous rupture of ear drum, left ear; H66.3X3 Other chronic suppurative otitis media, bilateral; H72.90 Unspecified perforation of tympanic membrane, unspecified ear; H90.2 Conductive hearing loss, unspecified; H92.10 Otorrhea, unspecified ear; I10 Essential (primary) hypertension; M15.9 Polyosteoarthritis, unspecified; N40.0 Benign prostatic hyperplasia without lower urinary tract symptoms; Z79.899 Other long term (current) drug therapy; Z81.1 Family history of alcohol abuse and dependence; Z96.653 Presence of artificial knee joint, bilateral; T43.206A Underdosing of unspecified antidepressants, initial encounter; T46.5X6A Underdosing of other antihypertensive drugs, initial encounter; Z91.128 Patient's intentional underdosing of medication regimen for other reason; Z83.2 Family history of diseases of the blood and blood-forming organs and certain disorders involving the immune mechanism; Z81.8 Family history of other mental and behavioral disorders
CPT/HCPCS: 36415; 70486; 70553; 80048; 80053; 80061; 80299; 80306; 81001; 82075; 83036; 84443; 85025; 87070; 87077; 87086; 87186; 87205; 99285

== ENCOUNTER 2018-08-31 09:06 | Day surgery (SDC) | payer MEDICARE ==
[2018-08-28 15:07] VITALS: BMI 35.0
[~2018-08-31 09:06] MED LIST: ACETAMINOPHEN TAB 500 MG TAB PO ONE; DEXAMETHASONE SOD PHOSPHATE 10 MG/ML 1 ML VIAL IV ONE; DEXAMETHASONE SOD PHOSPHATE 4 MG/ML 1 ML VIAL IV ONE; FAMOTIDINE 20 MG/2 ML VIAL IV ONE; HYDROmorphone 0.5 MG/0.5 ML SYRINGE IVP PRN; LACTATED RINGERS 1,000 ML IV SCH; LIDOCAINE 1% 20 ML VIAL (10MG/ML) FOR IV START INTRADERMA PRN; MIDAZOLAM 2 MG/2 ML VIAL IV PRN; ONDANSETRON 4 MG/2 ML VIAL IVP ONE; SCOPOLAMINE 1.5MG/72HR PATCH TRANSDERM ONE
[2018-08-31 09:39] VITALS: RESP 16; TEMP 97.6
[2018-08-31] MEDS: OXYMETAZOLINE 0.05% NASL SPRAY 1 SPRAY BOTTLE NASAL ONE ×6 (09:48→10:16)
[2018-08-31] MEDS ORDERED: LIDOCAINE 1% INJ 10MG/ML (20 ML MDV) ONE (11:34)
[2018-08-31] MEDS ORDERED: PROPOFOL 10 MG/ML 20 ML VIAL IV ONE (11:34)
[2018-08-31] MEDS ORDERED: MIDAZOLAM 2 MG/2 ML VIAL ONE (11:34)
[2018-08-31] MEDS ORDERED: SUCCINYLCHOLINE CHLORIDE 100 MG/5 ML SYR IV ONE (11:34)
[2018-08-31] MEDS ORDERED: fentaNYL (PF) 50 MCG/ML 2 ML AMP ONE (11:34)
[2018-08-31] MEDS ORDERED: CIPROFLOXACIN-DEXAMETH 0.3-0.1% DROPS 7.5 ML BTL BOTH EARS ONE (12:00)
[2018-08-31] MEDS ORDERED: OXYMETAZOLINE 0.05% NASL SPRAY 1 SPRAY BOTTLE MISCELLANE ONE (12:03)
[2018-08-31] MEDS ORDERED: LACTATED RINGERS 1,000 ML IV ONE (12:15)
--- NOTE | 2018-08-31 12:23 | P.OP ---
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 A mastoidectomy was recommended that the patient wished to proceed forward with more conservative treatment such as tube placement. We did find that the patient had a large mass of the nasopharynx and biopsy was recommended. 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 Patient had middle ear effusion bilaterally right-sided actually was worse today than the left. Description of Procedure: Prior to surgery, all risks, benefits, and alternative therapies were discussed again with the patient and family. Risks of bleeding, need for second tubes, perforation, early extrusion of tubes, etc. etc. were explained. All questions were answered and a consent was obtained. This patient was taken to the operative room and placed in the supine position. Mask inhalation anesthesia was performed by the department of anesthesia. The patient was monitored throughout the entire case by the department of anesthesia. Both tympanic membranes were visualized with an operating Zeiss microscope. Cerumen and epithelial debris was removed from the external auditory canals bilaterally. The tympanic membranes were visualized under an operative microscope. The right tympanic membrane was quite inflamed the left tympanic membrane showed some myringosclerosis. Purulence was seen on the right side which was cultured. Both middle ear space had serous fluid. Tympanostomy incisions were made inferiorly. Fluid was suctioned from the middle ear space with use of a #3 and #5 Huggins suction with care to avoid any trauma to the middle ear structures. Middle ear lavage's were performed. Ventilation tubes were then inserted bilaterally. Excellent placement was obtained. With use of a 0 Carias zaira scope the nose was evaluated and nasal endoscopy was performed. We identified this large mass of the nasopharynx it was biopsied with use a pierre Odom with a 0 endoscope visualization. We did review and evaluate the entire nose and nasal cavity and nasopharynx. After we performed a biopsy under direct visualization with the 0 Carias zaira scope a large stone wall cyst was identified and fluid was removed. We marsupialized this cyst and the patient tolerated this well. The patient was then taken to the recovery room in excellent condition by the department of anesthesia and monitored through the recovery process by the recovery room nurse supervised by anesthesia. A follow-up appointment has been scheduled.
[2018-08-31 13:06] VITALS: PULSE 84
[2018-08-31 13:21] VITALS: BP 114/73
== END 2018-08-31 13:38 | disposition home or self-care (01) ==
LOC: OR 09:06
PROVIDERS: ATTEND Otolaryngology
DX: H65.493 Other chronic nonsuppurative otitis media, bilateral (principal); J39.2 Other diseases of pharynx; J31.2 Chronic pharyngitis; H70.10 Chronic mastoiditis, unspecified ear; H69.83 Other specified disorders of Eustachian tube, bilateral; F32.9 Major depressive disorder, single episode, unspecified; F17.210 Nicotine dependence, cigarettes, uncomplicated; Z79.899 Other long term (current) drug therapy; Z80.0 Family history of malignant neoplasm of digestive organs; Z83.3 Family history of diabetes mellitus; I10 Essential (primary) hypertension
CPT/HCPCS: 69436; 31237; 88305; 87070; 87205; 87075; 87102; 87077; 87186; J2250; J1100; J2405; J0690; J2001; J3010; J0330; J2704

== ENCOUNTER 2018-10-21 14:14 | Observation (INO) | payer MEDICARE ==
[2018-10-21] MEDS ORDERED: ASPIRIN 81 MG PO STA (14:47)
--- NOTE | 2018-10-21 14:47 | ED ---
General Adult HPI - General Source: patient, RN notes reviewed Mode of arrival: wheelchair Limitations: no limitations <Rei Clark - Last Filed: 10/21/18 16:15> <Hermes Bliss - Last Filed: 10/21/18 16:22> - General Chief complaint: Dizziness Stated complaint: Dizziness Time Seen by Provider: 10/21/18 14:28 - History of Present Illness Initial comments: 68-year-old male with a past medical history of NIDDM, hypertension, prostate disorder presents to the emergency department for a chief complaint of lightheadedness. Patient states he started to feel lightheaded about 2 hours ago while walking. Denies any sensation of the room spinning or losing his balance. Patient states he did get nauseous and felt diaphoretic. Patient denies any alleviating or aggravating factors. States this is not worse when going from sitting to standing. Patient denies nausea or vomiting. Patient denies any shortness of breath or chest pain. Does admit to a significant past smoking history. Denies any cardiac history in himself or his immediate family. Denies any known history of hyperlipidemia or hypertension. Patient has no other complaints at this time including shortness of breath, chest pain, abdom inal pain, nausea or vomiting, headache, or visual changes. (Rei Clark) - Related Data Home Medications Medication Instructions Recorded Confirmed Lisinopril-Hctz 10-12.5 mg 1 tab PO BID 08/28/18 10/02/18 [Zestoretic 10-12.5] Pramipexole [Mirapex] 1 mg PO DAILY 08/28/18 10/02/18 lamoTRIgine [LaMICtal Xr] 100 mg PO QID 08/28/18 10/02/18 Desvenlafaxine Succinate [Pristiq 100 mg PO DAILY 10/02/18 10/02/18 ER] Donepezil [Aricept] 5 mg PO DAILY 10/02/18 10/02/18 QUEtiapine [SEROquel] 200 mg PO HS 10/02/18 10/02/18 Tamsulosin [Flomax] 0.4 mg PO DAILY 10/02/18 10/02/18 Allergies Allergy/AdvReac Type Severity Reaction Status Date / Time No Known Allergies Allergy Verified 10/03/18 02:56 Review of Systems ROS Other: All systems not noted in ROS Statement are negative. <Rei Clark - Last Filed: 10/21/18 16:15> ROS Other: All systems not noted in ROS Statement are negative. <Hermes Bliss - Last Filed: 10/21/18 16:22> ROS Statement: Those systems with pertinent positive or pertinent negative responses have been documented in the HPI. Past Medical History Past Medical History: Diabetes Mellitus, Hypertension, Osteoarthritis (OA), Prostate Disorder, Sleep Apnea/CPAP/BIPAP Additional Past Medical History / Comment(s): PAST HX OF SLEEP APNEA-NO PROBLEM NOW, HX OF DIABETES-NO MEDS NOW, electric shock treatments for depression History of Any Multi-Drug Resistant Organisms: None Reported Past Surgical History: Hernia Repair, Joint Replacement, Orthopedic Surgery, Tonsillectomy Additional Past Surgical History / Comment(s): ABDOMINAL HERNIA REPAIR , LEFT SHOULDER REPAIR, CRISTIAN INGUINAL HERNIA, CRISTIAN KNEE REPLACEMENT. Past Anesthesia/Blood Transfusion Reactions: No Reported Reaction Past Psychological History: Anxiety, Bipolar, Depression, Panic Disorder Smoking Status: Current every day smoker Past Alcohol Use History: None Reported Past Drug Use History: None Reported - Past Family History Father Family Medical History: Deep Vein Thrombosis (DVT) Additional Family Medical History / Comment(s): alcoholism- age 50's Mother Additional Family Medical History / Comment(s): born w/ 1 lung, during childbirth. <Rei Clark P - Last Filed: 10/21/18 16:15> General Exam Limitations: no limitations General appearance: alert, in no apparent distress Head exam: Present: atraumatic, normocephalic, normal inspection Eye exam: Present: normal appearance, PERRL, EOMI. Absent: scleral icterus, conjunctival injection, periorbital swelling ENT exam: Present: normal exam, mucous membranes moist Neck exam: Present: normal inspection, full ROM. Absent: tenderness, meningismus, lymphadenopathy Respiratory exam: Present: normal lung sounds bilaterally. Absent: respiratory distress, wheezes, rales, rhonchi, stridor Cardiovascular Exam: Present: regular rate, normal rhythm, normal heart sounds. Absent: systolic murmur, diastolic murmur, rubs, gallop, clicks GI/Abdominal exam: Present: soft, normal bowel sounds. Absent: distended, tenderness, guarding, rebound, rigid Neurological exam: Present: alert, oriented X3, CN II-XII intact, normal gait, other (GCS 15) Psychiatric exam: Present: normal affect, normal mood <Rei Clark - Last Filed: 10/21/18 16:15> Course Vital Signs 10/21/18 14:22 Temperature 98.5 F Pulse Rate 97 Respiratory 18 Rate Blood Pressure 126/80 O2 Sat by Pulse 90 L Oximetry EKG Findings - EKG Comments: EKG Findings:: Normal sinus rhythm, ventricular rate 93, ID interval 164, QTc 435 <Rei Clark - Last Filed: 10/21/18 16:15> Medical Decision Making - Lab Data Result diagrams: 10/21/18 15:07 10/21/18 15:07 <Rei Clark - Last Filed: 10/21/18 16:15> - Lab Data Result diagrams: 10/21/18 15:07 10/21/18 15:07 <Hermes Bliss - Last Filed: 10/21/18 16:22> - Medical Decision Making 68-year-old male with a past medical history of hypertension, NIDDM, smoking presents to the emergency department for a chief complaint of lightheadedness. Patient states that 2 hours ago he was shopping when he started to feel lightheaded and nauseous and diaphoretic. Patient is 90% on room air with a pul se rate of 97. On exam patient is well appearing. No neuro deficits. CBC does show a white count of 14, likely reactive. CMP does show a creatinine of 1.53, patient given IV fluids. Chest x-ray shows mild bibasilar subsegmental atelectasis. EKG does show some T-wave inversions on the inferior leads. Patient denies any chest pain or shortness of breath. Patient does feel slight lightheadedness has improved somewhat. However given patient's lightheadedness associated with nausea and diaphoresis as well as heart score of 5 at this time we feel patient should be admitted for further cardiac workup. Patient does agree to this. Dr. Bliss spoke with Dr. rosario except this admission. Cardiology will be consulted. Troponin will be trended. (Rei Clark) I saw this patient with the physician's assistant department manager and consider him to be moderate to high risk for cardiac etiology of his symptoms today. Patient is agreeable to admission. Case discussed with Dr. Reyes who accepts. (Hermes Bliss) - Lab Data Lab Results 10/21/18 10/21/18 10/21/18 Range/Units 15:07 15:07 15:07 WBC 14.1 H (3.8-10.6) k/uL RBC 4.82 (4.30-5.90) m/uL Hgb 15.5 (13.0-17.5) gm/dL Hct 45.6 (39.0-53.0) % MCV 94.5 (80.0-100.0) fL MCH 32.0 (25.0-35.0) pg MCHC 33.9 (31.0-37.0) g/dL RDW 14.7 (11.5-15.5) % Plt Count 315 (150-450) k/uL Neutrophils % 80 % Lymphocytes % 12 % Monocytes % 4 % Eosinophils % 2 % Basophils % 0 % Neutrophils # 11.3 H (1.3-7.7) k/uL Lymphocytes # 1.8 (1.0-4.8) k/uL Monocytes # 0.6 (0-1.0) k/uL Eosinophils # 0.3 (0-0.7) k/uL Basophils # 0.1 (0-0.2) k/uL PT 9.6 (9.0-12.0) sec INR 0.9 (<1.2) APTT 22.5 (22.0-30.0) sec D-Dimer 0.47 (<0.60) mg/L FEU Sodium 143 (137-145) mmol/L Potassium 4.4 (3.5-5.1) mmol/L Chloride 107 (98-107) mmol/L Carbon Dioxide 26 (22-30) mmol/L Anion Gap 10 mmol/L BUN 28 H (9-20) mg/dL Creatinine 1.53 H (0.66-1.25) mg/dL Est GFR (CKD-EPI)AfAm 54 (>60 ml/min/1.73 sqM) Est GFR (CKD-EPI)NonAf 47 (>60 ml/min/1.73 sqM) Glucose 132 H (74-99) mg/dL Calcium 9.8 (8.4-10.2) mg/dL Magnesium 2.2 (1.6-2.3) mg/dL Total Bilirubin 0.5 (0.2-1.3) mg/dL AST 21 (17-59) U/L ALT <6 L (21-72) U/L Alkaline Phosphatase 79 (38-126) U/L Troponin I (0.000-0.034) ng/mL Total Protein 7.0 (6.3-8.2) g/dL Albumin 4.3 (3.5-5.0) g/dL 10/21/18 Range/Units 15:07 WBC (3.8-10.6) k/uL RBC (4.30-5.90) m/uL Hgb (13.0-17.5) gm/dL Hct (39.0-53.0) % MCV (80.0-100.0) fL MCH (25.0-35.0) pg MCHC (31.0-37.0) g/dL RDW (11.5-15.5) % Plt Count (150-450) k/uL Neutrophils % % Lymphocytes % % Monocytes % % Eosinophils % % Basophils % % Neutrophils # (1.3-7.7) k/uL Lymphocytes # (1.0-4.8) k/uL Monocytes # (0-1.0) k/uL Eosinophils # (0-0.7) k/uL Basophils # (0-0.2) k/uL PT (9.0-12.0) sec INR (<1.2) APTT (22.0-30.0) sec D-Dimer (<0.60) mg/L FEU Sodium (137-145) mmol/L Potassium (3.5-5.1) mmol/L Chloride (98-107) mmol/L Carbon Dioxide (22-30) mmol/L Anion Gap mmol/L BUN (9-20) mg/dL Creatinine (0.66-1.25) mg/dL Est GFR (CKD-EPI)AfAm (>60 ml/min/1.73 sqM) Est GFR (CKD-EPI)NonAf (>60 ml/min/1.73 sqM) Glucose (74-99) mg/dL Calcium (8.4-10.2) mg/dL Magnesium (1.6-2.3) mg/dL Total Bilirubin (0.2-1.3) mg/dL AST (17-59) U/L ALT (21-72) U/L Alkaline Phosphatase (38-126) U/L Troponin I <0.012 (0.000-0.034) ng/mL Total Protein (6.3-8.2) g/dL Albumin (3.5-5.0) g/dL Disposition Is patient prescribed a controlled substance at d/c from ED?: No Time of Disposition: 16:18 <Rei Clark - Last Filed: 10/21/18 16:15> <Hermes Bliss - Last Filed: 10/21/18 16:22> Clinical Impression: Near syncope Disposition: ADMITTED IP TO THIS HOSP Referrals: Hossein Mccord DO [Primary Care Provider] - 1-2 days
[2018-10-21] MEDS ORDERED: SODIUM CHLORIDE 0.9% 500 ML 500 ML IV STA ×2 (14:48→15:52)
[2018-10-21 15:22] LABS: Basophils # (A) 0.1 k/uL (0-0.2); Basophils % (A) 0 %; Eosinophils # (A) 0.3 k/uL (0-0.7); Eosinophils % (A) 2 %; HCT 45.6 % (39.0-53.0); HGB 15.5 gm/dL (13.0-17.5); Lymphocytes # (A) 1.8 k/uL (1.0-4.8); Lymphocytes % (A) 12 %; MCHC 33.9 g/dL (31.0-37.0); MCV 94.5 fL (80.0-100.0); Mean Platelet Volume 7.3; Monocytes # (A) 0.6 k/uL (0-1.0); Monocytes % (A) 4 %; Neutrophils # (A) 11.3 k/uL (1.3-7.7); Neutrophils % (A) 80 %; Platelet Count 315 k/uL (150-450); RBC 4.82 m/uL (4.30-5.90); RDW 14.7 % (11.5-15.5); WBC 14.1 k/uL (3.8-10.6)
[2018-10-21 15:33] LABS: ALT <6 U/L (21-72); AST 21 U/L (17-59); African American GFR (CKD) 54 (>60 ml/min/1.73 sqM); Albumin 4.3 g/dL (3.5-5.0); Alkaline Phosphatase 79 U/L (38-126); Anion Gap 10 mmol/L; Blood Urea Nitrogen 28 mg/dL (9-20); Calcium 9.8 mg/dL (8.4-10.2); Carbon Dioxide 26 mmol/L (22-30); Chloride 107 mmol/L (98-107); Glucose 132 mg/dL (74-99); Magnesium 2.2 mg/dL (1.6-2.3); Potassium 4.4 mmol/L (3.5-5.1); Sodium 143 mmol/L (137-145); Total Bilirubin 0.5 mg/dL (0.2-1.3)
--- NOTE | 2018-10-21 15:34 | XR ---
EXAMINATION TYPE: XR chest 2V DATE OF EXAM: 10/21/2018 COMPARISON: 02/19/2016 INDICATION: Chest pain TECHNIQUE: Frontal and lateral views of the chest are obtained. FINDINGS: The heart size is normal. The pulmonary vasculature is normal. Mild subsegmental atelectasis is present at the bilateral lung base. Degree of inspiration is somewha t limited.. IMPRESSION: 1. Mild bibasilar subsegmental atelectasis.
[2018-10-21 15:38] LABS: D-Dimer 0.47 mg/L FEU (<0.60); INR 0.9 (<1.2); Partial Thromboplastin Time 22.5 sec (22.0-30.0); Prothrombin Time 9.6 sec (9.0-12.0)
[2018-10-21] MEDS ORDERED: NITROGLYCERIN SL TABS 0.4 MG TAB SUBLINGUAL PRN (16:19)
[2018-10-21 19:52] LABS: Glucose,Whole Blood 162 mg/dL (75-99)
[2018-10-21] MEDS ORDERED: LISINOPRIL-HCTZ 10-12.5 MG 1 EACH TAB PO SCH (21:00)
[2018-10-21] MEDS: QUEtiapine 200 MG TAB PO SCH (21:33)
[2018-10-21] MEDS: lamoTRIgine 100 MG TAB PO SCH (21:33)
[2018-10-21] MEDS: PRAMIPEXOLE 1 MG TAB PO SCH (21:33)
[2018-10-21] MEDS: NICOTINE POLACRILEX 2 MG GUM BUCCAL PRN (21:34)
--- NOTE | 2018-10-21 22:26 | P.HPIM ---
History of Present Illness H&P Date: 10/21/18 Chief Complaint: [place] panicky History of presenting complaint: This is a pleasant [address] Mccord. Chronic stable medical conditions include diabetes, hypertension, osteoarthritis,. Patient's long- standing smoker. Patient gone to [facility]. He states he suddenly became panicky. Became but anxious agitated somewhat confused. He never lost his balance. Nearly passed out. He felt it was more of a panic attack. He does get it sometimes. Also short of breath and wheezing a bit. No fever no chills. He is quite a bit anxious all the time. Has significant family issues. His eldest son is in the senior care and often cause trouble for his . His has left the house and then with another son. Review of systems: GEN.: None EYES: None HEENT: None NECK: None RESPIRATORY: Wheezing and cough. Shortness of breath CARDIOVASCULAR: None GASTROINTESTINAL: None GENITOURINARY: None MUSCULOSKELETAL: Some pain in the joints LYMPHATICS: None HEMATOLOGICAL: None PSYCHIATRY: Anxious NEUROLOGICAL: None Social history: Smokes a pack a day for over 45 years, did drink heavy alcohol in the past none in last 3 years. Lives with family members. Family history: DVT and alcoholism Physical examination: VITAL SIGNS: 98.5, 97, 18 126/80, 90% on room air GENERAL: BMI 35.4, sitting up in bed, anxious. EYES: Pupils equal. Conjunctiva normal. HEENT: External appearance of nose and ears normal, oral cavity grossly normal. NECK: JVD not raised; masses not palpable. HEART: First and second heart sounds are normal; no edema. LUNGS: Respiratory rate increased, decreased breath sounds prolonged expiration. ABDOMEN: Soft, nontender, liver spleen not palpable, no masses palpable. PSYCH: Alert and oriented x3; mood and affect very anxious appearingl. NEUROLOGICAL: Cranial nerves grossly intact; no facial asymmetry, power and sensation grossly intact. LYMPHATICS: No lymph nodes palpable in the axilla and neck Investigations, reviewed in the clinical context: White count 14.1, hemoglobin 15.5, potassium 4.4, BUN/creatinine 28, creatinine 1.53 Patient's renal function in June of this year showed the BUN 29 and a creatinine of 1.1 Troponin 2 negative EKG tracing personally reviewed by me shows normal sinus rhythm nonspecific T- wave changes Chest x-ray film personally reviewed by me shows an expiratory film with some atelectasis Assessment: -Acute COPD exacerbation in a current smoker -Panic attack at the store -Chronic nicotine dependence patient cigarette smoker -Acute renal failure, cause unclear at the present time -Essential hypertension -Primary osteoarthritis -Depression otherwise specified - Plan: Patient be started on nebulized bronchodilators every 4 hours, IV Solu-Medrol and inhaled steroids. Home medications were resumed. We'll hold of patient's Zestoretic. Give IV fluids. Repeat electrolytes in the morning. Care was discussed with the patient. Smoke cessation counseling: This was done with the patient. Patient is reluctant to stop smoking. We'll give nicotine patch. More than 3 minutes was spent on this aspect of the case. Past Medical History Past Medical History: Diabetes Mellitus, Hypertension, Osteoarthritis (OA), Pros kennedy Disorder, Sleep Apnea/CPAP/BIPAP Additional Past Medical History / Comment(s): PAST HX OF SLEEP APNEA-NO PROBLEM NOW, HX OF DIABETES-NO MEDS NOW, electric shock treatments for depression History of Any Multi-Drug Resistant Organisms: None Reported Past Surgical History: Hernia Repair, Joint Replacement, Orthopedic Surgery, Tonsillectomy Additional Past Surgical History / Comment(s): ABDOMINAL HERNIA REPAIR , LEFT SHOULDER REPAIR, CRISTIAN INGUINAL HERNIA, CRISTIAN KNEE REPLACEMENT. Past Anesthesia/Blood Transfusion Reactions: No Reported Reaction Smoking Status: Current every day smoker - Past Family History Father Family Medical History: Deep Vein Thrombosis (DVT) Additional Family Medical History / Comment(s): alcoholism- age 50's Mother Additional Family Medical History / Comment(s): born w/ 1 lung, during childbirth. Medications and Allergies Home Medications Medication Instructions Recorded Confirmed Type Lisinopril-Hctz 10-12.5 mg 1 tab PO BID 08/28/18 10/21/18 History [Zestoretic 10-12.5] Pramipexole [Mirapex] 1 mg PO HS 08/28/18 10/21/18 History lamoTRIgine [LaMICtal Xr] 100 mg PO BID 08/28/18 10/21/18 History Desvenlafaxine Succinate [Pristiq 100 mg PO DAILY 10/02/18 10/21/18 History ER] Donepezil [Aricept] 5 mg PO DAILY 10/02/18 10/21/18 History QUEtiapine FUMARATE [SEROquel] 200 mg PO HS 10/21/18 10/21/18 History Allergies Allergy/AdvReac Type Severity Reaction Status Date / Time No Known Allergies Allergy Verified 10/21/18 20:25 Physical Exam Vitals: Vital Signs Temp Pulse Pulse Resp BP BP Pulse Ox 10/21/18 20:00 18 10/21/18 19:29 98.5 F 90 18 151/75 93 L 10/21/18 19:00 85 25 H 133/87 10/21/18 17:24 86 16 133/87 98 10/21/18 17:00 86 23 130/90 96 10/21/18 16:00 84 16 130/90 91 L 10/21/18 14:22 98.5 F 97 18 126/80 90 L Intake and Output 10/21/18 10/21/18 10/21/18 06:59 14:59 22:59 Other: Weight 90.718 kg Results CBC & Chem 7: 10/21/18 15:07 10/21/18 15:07 Labs: Abnormal Lab Results - Last 24 Hours (Table) 10/21/18 10/21/18 10/21/18 Range/Units 15:07 15:07 19:51 WBC 14.1 H (3.8-10.6) k/uL Neutrophils # 11.3 H (1.3-7.7) k/uL BUN 28 H (9-20) mg/dL Creatinine 1.53 H (0.66-1.25) mg/dL Glucose 132 H (74-99) mg/dL POC Glucose (mg/dL) 162 H (75-99) mg/dL ALT <6 L (21-72) U/L Thrombosis Risk Factor Assmnt - Choose All That Apply Each Risk Factor Represents 2 Points: Age 61-74 years Thrombosis Risk Factor Assessment Total Risk Factor Score: 2 Thrombosis Risk Factor Assessment Level: Low Risk
[2018-10-21] MEDS: IPRATROPIUM-ALBUTEROL 3 ML NEB INHALATION SCH ×2 (23:23→23:47)
[2018-10-21] MEDS: BUDESONIDE 1 MG/2 ML NEBU INHALATION SCH (23:23)
[2018-10-21] MEDS: methylPREDNISolone SOD SUCCI 40 MG/ML 1 ML VIAL IV SCH ×2 (23:24→23:31)
[2018-10-21] MEDS: ENOXAPARIN 40 MG/0.4 ML SYRINGE SQ SCH (23:24)
[2018-10-21] MEDS: SODIUM CHLORIDE 0.9% 1,000 ML IV SCH (23:25)
[2018-10-22] MEDS: IPRATROPIUM-ALBUTEROL 3 ML NEB INHALATION SCH ×6 (03:00→23:28)
[2018-10-22 03:45] LABS: Potassium 4.3 mmol/L (3.5-5.1)
[2018-10-22 03:47] LABS: Calcium 9.4 mg/dL (8.4-10.2)
[2018-10-22 07:10] LABS: Glucose,Whole Blood 145 mg/dL (75-99)
[2018-10-22] MEDS: BUDESONIDE 1 MG/2 ML NEBU INHALATION SCH ×2 (08:08→19:34)
[2018-10-22] MEDS: INSULIN ASPART (NovoLOG) 100 UNIT/ML VIAL SQ SCH ×4 (10:00→19:42)
[2018-10-22] MEDS: lamoTRIgine 100 MG TAB PO SCH ×2 (10:15→19:42)
[2018-10-22] MEDS: ASPIRIN 325 MG TAB PO SCH (10:15)
[2018-10-22] MEDS: methylPREDNISolone SOD SUCCI 40 MG/ML 1 ML VIAL IV SCH ×2 (10:15→16:41)
[2018-10-22] MEDS: ENOXAPARIN 40 MG/0.4 ML SYRINGE SQ SCH (10:15)
[2018-10-22] MEDS: SODIUM CHLORIDE 0.9% 1,000 ML IV SCH (10:15)
[2018-10-22] MEDS: DESVENLAFAXINE SUCCINATE 50 MG TAB.ER.24H PO SCH (10:15)
[2018-10-22] MEDS: DONEPEZIL 5 MG TAB PO SCH (10:15)
--- NOTE | 2018-10-22 11:15 | P.CRDCN ---
History of Present Illness Consult date: 10/22/18 Consult reason: sycope (Near syncope) History of present illness: This is a 68-year-old male with past history of hypertension,, diabet es not on medication, enlarged prostate recently underwent procedure with Dr. James with ongoing hematuria, depression, tobacco use and dependence. Patient does not follow with driller's offsider. Patient is currently an active smoker one pack per day for 50 years. He denies any alcohol abuse. Patient gives history that he developed nausea after he had breakfast yesterday morning. He had an upgoing [employer] to do some shopping and while there he was still feeling a little bit queasy then developed what he thought was a panic attack and felt shaky. He left the store came out into the parking lot was feeling very dizzy and lightheaded and thought he was going to pass out. He did have some dry heaves and nausea. He complained of palpitations. He did not lose consciousness. He denies any previous episodes. Patient drove himself to the emergency center for evaluation. Initial blood pressure 130/90. He has been placed in the observation unit. He currently denies having any nausea vomiting or diarrhea. He states he has been eating and drinking fine prior to this episode. He has ambulated to the bathroom and back but no further than that. He has had no further episodes of dizziness or lightheadedness. He denies any previous history of heart catheterization. Orthostatic vital signs negative. EKG reveals sinus rhythm with nonspecific T waves in the inferior and V6. Laboratory studies: Troponin negative on 3 draws. W BC 14.1, hemoglobin 15.5, BUN 20 and creatinine 1.53 with repeat BUN of 29 and creatinine 1.19. Blood sugars 132-162 LDL 142 Chest x-ray reveals mild bibasilar subsegmental atelectasis. Stress test in August 2016 was negative. Review Of Systems: Constitutional: No fever, no chills, no night sweats. No weight change. No weakness, fatigue or lethargy. No daytime sleepiness. EENT: No headache. No blurred vision or double vision, no loss of vision. No loss of Hearing, no ringing in the ears, reports dizziness. No nasal drainage or congestion. No epistaxis. No sore throat. Lungs: Reports shortness of breath, cough, no sputum production. No wheezing. Cardiovascular: No chest pain, no lower extremity edema. No palpitations. No paroxysmal nocturnal dyspnea. No orthopnea. Reports lightheadedness reports dizziness. No syncopal episodes. Abdominal: No abdominal pain. Reports nausea, reports vomiting. No diarrhea. No constipation. No bloody or tarry stools. No loss of appetite. Genitourinary: No dysuria, increased frequency, urgency. No urinary retention. Reports hematuria Musculoskeletal: No myalgias. No muscle weakness, no gait dysfunction, no frequent falls. No back pain. No neck pain. Integumentary: No wounds, no lesions. No rash or pruritus. No unusual bruising. No change in hair or nails. Neurologic: No aphasia. No facial droop. No change in mentation. No head injury. No headache. No paralysis. No paresthesia. Psychiatric: Reports history of depression. Reports anxiety. Endocrine: No abnormal blood sugars. No weight change. No excessive sweating or thirst. No cold intolerance. No weight change. Patient is afebrile, blood pressure 166/82, heart rate 80, pulse ox 91% on room air. Gen: This is a 68-year-old obese male. He is resting in bed and appears to be comfortable and in no acute distress. HEENT: Head is atraumatic, normocephalic. Pupils equal, round. Sclerae is anicteric. Oral mucous members are moist. NECK: Supple. No JVD. No lymphadenopathy. No thyromegaly. LUNGS: Few scattered rhonchi. No intercostal retractions. HEART: Regular rate and rhythm. No murmur. ABDOMEN: Soft. Bowel sounds are present. No masses. No tenderness. EXTREMITIES: No pedal edema. No calf tenderness. Dorsalis pedis +2 bilaterally. NEUROLOGICAL: Patient is awake, alert and oriented x3. Cranial nerves 2 through 12 are grossly intact. Assessment: Symptoms of nausea, palpitations with lightheadedness and dizziness, near syncope. No arrhythmias noted on monitor. Normal troponins. Nonspecific ST changes in inferior leads and V6. Hyperlipidemia. Hypertension. COPD. Tobacco use and dependence. Plan: Resume lisinopril/hydrochlorothiazide. Start atorvastatin 20 mg at bedtime. Stress echocardiogram tomorrow. If stress test is normal, patient would be considered for event monitor as an outpatient. Further recommendations to follow based upon clinical course. Thank you kindly for this consultation. Nurse practitioner note has been reviewed, I agree with documented findings and plan of care. Patient was seen and examined. Past Medical History Past Medical History: Diabetes Mellitus, Hypertension, Osteoarthritis (OA), Prostate Disorder, Sleep Apnea/CPAP/BIPAP Additional Past Medical History / Comment(s): PAST HX OF SLEEP APNEA-NO PROBLEM NOW, HX OF DIABETES-NO MEDS NOW, electric shock treatments for depression History of Any Multi-Drug Resistant Organisms: None Reported Past Surgical History: Hernia Repair, Joint Replacement, Orthopedic Surgery, Tonsillectomy Additional Past Surgical History / Comment(s): ABDOMINAL HERNIA REPAIR , LEFT SHOULDER REPAIR, CRISTIAN INGUINAL HERNIA, CRISTIAN KNEE REPLACEMENT. Past Anesthesia/Blood Transfusion Reactions: No Reported Reaction Smoking Status: Current every day smoker - Past Family History Father Family Medical History: Deep Vein Thrombosis (DVT) Additional Family Medical History / Comment(s): alcoholism- age 50's Mother Additional Family Medical History / Comment(s): born w/ 1 lung, during childbirth. Medications and Allergies Home Medications Medication Instructions Recorded Confirmed Type Lisinopril-Hctz 10-12.5 mg 1 tab PO BID 08/28/18 10/21/18 History [Zestoretic 10-12.5] Pramipexole [Mirapex] 1 mg PO HS 08/28/18 10/21/18 History lamoTRIgine [LaMICtal Xr] 100 mg PO BID 08/28/18 10/21/18 History Desvenlafaxine Succinate [Pristiq 100 mg PO DAILY 10/02/18 10/21/18 History ER] Donepezil [Aricept] 5 mg PO DAILY 10/02/18 10/21/18 History QUEtiapine FUMARATE [SEROquel] 200 mg PO HS 10/21/18 10/21/18 History Allergies Allergy/AdvReac Type Severity Reaction Status Date / Time No Known Allergies Allergy Verified 10/21/18 20:25 Physical Exam Vitals: Vital Signs Temp Pulse Pulse Resp BP BP BP 10/22/18 08:22 80 10/22/18 08:09 80 10/22/18 08:00 98.6 F 81 17 133/78 10/22/18 04:00 98.4 F 81 18 109/67 10/22/18 03:13 18 10/22/18 00:00 18 10/21/18 23:56 85 10/21/18 23:50 98.2 F 86 18 135/80 10/21/18 23:49 85 10/21/18 20:00 18 10/21/18 19:29 98.5 F 90 18 151/75 10/21/18 19:00 85 25 H 133/87 10/21/18 17:24 86 16 133/87 10/21/18 17:00 86 23 130/90 10/21/18 16:00 84 16 130/90 10/21/18 14:22 98.5 F 97 18 126/80 Pulse Ox 10/22/18 08:22 10/22/18 08:09 10/22/18 08:00 90 L 10/22/18 04:00 90 L 10/22/18 03:13 10/22/18 00:00 10/21/18 23:56 10/21/18 23:50 92 L 10/21/18 23:49 10/21/18 20:00 10/21/18 19:29 93 L 10/21/18 19:00 10/21/18 17:24 98 10/21/18 17:00 96 10/21/18 16:00 91 L 10/21/18 14:22 90 L Intake and Output 10/21/18 10/22/18 10/22/18 22:59 06:59 14:59 Other: # Voids 1 Results 10/21/18 15:07 10/22/18 03:20 Cardiac Enzymes 10/21/18 10/21/18 10/21/18 Range/Units 15:07 15:07 20:32 AST 21 (17-59) U/L Troponin I <0.012 <0.012 (0.000-0.034) ng/mL 10/22/18 Range/Units 03:20 AST (17-59) U/L Troponin I <0.012 (0.000-0.034) ng/mL Coagulation 10/21/18 Range/Units 15:07 PT 9.6 (9.0-12.0) sec APTT 22.5 (22.0-30.0) sec Lipids 10/22/18 Range/Units 03:20 Triglycerides 85 (<150) mg/dL Cholesterol 211 H (<200) mg/dL HDL Cholesterol 52 (40-60) mg/dL CBC 10/21/18 Range/Units 15:07 WBC 14.1 H (3.8-10.6) k/uL RBC 4.82 (4.30-5.90) m/uL Hgb 15.5 (13.0-17.5) gm/dL Hct 45.6 (39.0-53.0) % Plt Count 315 (150-450) k/uL Comprehensive Metabolic Panel 10/21/18 10/22/18 Range/Units 15:07 03:20 Sodium 143 140 (137-145) mmol/L Potassium 4.4 4.3 (3.5-5.1) mmol/L Chloride 107 107 (98-107) mmol/L Carbon Dioxide 26 23 (22-30) mmol/L BUN 28 H 29 H (9-20) mg/dL Creatinine 1.53 H 1.19 (0.66-1.25) mg/dL Glucose 132 H 142 H (74-99) mg/dL Calcium 9.8 9.4 (8.4-10.2) mg/dL AST 21 (17-59) U/L ALT <6 L (21-72) U/L Alkaline Phosphatase 79 (38-126) U/L Total Protein 7.0 (6.3-8.2) g/dL Albumin 4.3 (3.5-5.0) g/dL Current Medications Generic Name Dose Route Start Last Admin Trade Name Freq PRN Reason Stop Dose Admin Albuterol/Ipratropium 3 ml 10/21/18 22:26 10/22/18 08:08 Duoneb 0.5 Mg-3 Mg/3 Ml Soln INHALATION 3 ml RT-Q4H [facility]ALY Administration Aspirin 325 mg 10/22/18 09:00 10/22/18 10:15 Aspirin PO Not Given DAILY [facility] Budesonide 1 mg 10/21/18 22:26 10/22/18 08:08 Pulmicort INHALATION 1 mg RT-BID [facility] Administration Desvenlafaxine Succinate 100 mg 10/22/18 09:00 10/22/18 10:15 Pristiq Er PO 100 mg DAILY [facility] Administration Donepezil HCl 5 mg 10/22/18 09:00 10/22/18 10:15 Aricept PO 5 mg DAILY [facility] Administration Enoxaparin Sodium 40 mg 10/21/18 22:30 10/22/18 10:15 Lovenox SQ Not Given DAILY [facility] Sodium Chloride 1,000 mls @ 100 mls/hr 10/21/18 22:30 10/22/18 10:15 Saline 0.9% IV Not Given .Q10H [facility] Insulin Aspart 0 unit 10/22/18 07:30 10/22/18 10:00 Novolog SQ Not Given ACHS [facility] Protocol Lamotrigine 100 mg 10/21/18 21:00 10/22/18 10:15 Lamictal PO 100 mg BID [facility] Administration Methylprednisolone Sodium Succinate 40 mg 10/21/18 22:26 10/22/18 10:15 Solu-Medrol IV 40 mg Q8HR [facility] Administration Nicotine Polacrilex 2 mg 10/21/18 20:46 10/21/18 21:34 Nicorette Gum BUCCAL 2 mg Q2HR PRN Administration Nicotine Cravings Nitroglycerin 0.4 mg 10/21/18 16:19 Nitrostat SUBLINGUAL Q5M PRN Chest Pain Pramipexole Dihydrochloride 1 mg 10/21/18 21:00 10/21/18 21:33 Mirapex PO 1 mg HS [facility] Administration Quetiapine Fumarate 200 mg 10/21/18 21:00 10/21/18 21:33 Seroquel PO 200 mg HS MAGALY Administration Intake and Output 10/21/18 10/22/18 10/22/18 22:59 06:59 14:59 Other: # Voids 1 10/21/18 15:07 10/22/18 03:20
--- NOTE | 2018-10-22 11:53 | P.CRDCN ---
History of Present Illness History of present illness: Patient interviewed and examined. Please see full dictation by nurse practitioner 68-year-old male patient with hypertension who started experiencing nausea yesterday. No vomiting no diarrhea but he did have retching He also complained of being dizzy and lightheaded and associated palpitations Cardiac enzymes are normal pulse rate in the 80s blood pressure elevated Resume antihypertensive therapy Start atorvastatin 20 mg by mouth daily LDL is elevated at 146 mg/dL Exercise stress echo tomorrow If normal he may go home and follow-up with me, event monitoring for any arrhythmias Blood pressure management Past Medical History Past Medical History: Diabetes Mellitus, Hypertension, Osteoarthritis (OA), Prostate Disorder, Sleep Apnea/CPAP/BIPAP Additional Past Medical History / Comment(s): PAST HX OF SLEEP APNEA-NO PROBLEM NOW, HX OF DIABETES-NO MEDS NOW, electric shock treatments for depression History of Any Multi-Drug Resistant Organisms: None Reported Past Surgical History: Hernia Repair, Joint Replacement, Orthopedic Surgery, Tonsillectomy Additional Past Surgical History / Comment(s): ABDOMINAL HERNIA REPAIR , LEFT SHOULDER REPAIR, CRISTIAN INGUINAL HERNIA, CRISTIAN KNEE REPLACEMENT. Past Anesthesia/Blood Transfusion Reactions: No Reported Reaction Smoking Status: Current every day smoker - Past Family History Father Family Medical History: Deep Vein Thrombosis (DVT) Additional Family Medical History / Comment(s): alcoholism- age 50's Mother Additional Family Medical History / Comment(s): born w/ 1 lung, during childbirth. Medications and Allergies Home Medications Medication Instructions Recorded Confirmed Type Lisinopril-Hctz 10-12.5 mg 1 tab PO BID 08/28/18 10/21/18 History [Zestoretic 10-12.5] Pramipexole [Mirapex] 1 mg PO HS 08/28/18 10/21/18 History lamoTRIgine [LaMICtal Xr] 100 mg PO BID 08/28/18 10/21/18 History Desvenlafaxine Succinate [Pristiq 100 mg PO DAILY 10/02/18 10/21/18 History ER] Donepezil [Aricept] 5 mg PO DAILY 10/02/18 10/21/18 History QUEtiapine FUMARATE [SEROquel] 200 mg PO HS 10/21/18 10/21/18 History Allergies Allergy/AdvReac Type Severity Reaction Status Date / Time No Known Allergies Allergy Verified 10/21/18 20:25 Physical Exam Vitals: Vital Signs Temp Pulse Pulse Resp BP BP BP 10/22/18 11:42 92 10/22/18 11:39 94 17 10/22/18 11:08 98.2 F 94 17 10/22/18 08:22 80 10/22/18 08:09 80 10/22/18 08:00 98.6 F 81 17 133/78 10/22/18 04:00 98.4 F 81 18 109/67 10/22/18 03:13 18 10/22/18 00:00 18 10/21/18 23:56 85 10/21/18 23:50 98.2 F 86 18 135/80 10/21/18 23:49 85 10/21/18 20:00 18 10/21/18 19:29 98.5 F 90 18 151/75 10/21/18 19:00 85 25 H 133/87 10/21/18 17:24 86 16 133/87 10/21/18 17:00 86 23 130/90 10/21/18 16:00 84 16 130/90 10/21/18 14:22 98.5 F 97 18 126/80 BP BP BP Pulse Ox 10/22/18 11:42 10/22/18 11:39 10/22/18 11:08 166/82 154/98 148/75 91 L 10/22/18 08:22 10/22/18 08:09 10/22/18 08:00 90 L 10/22/18 04:00 90 L 10/22/18 03:13 10/22/18 00:00 10/21/18 23:56 10/21/18 23:50 92 L 10/21/18 23:49 10/21/18 20:00 10/21/18 19:29 93 L 10/21/18 19:00 10/21/18 17:24 98 10/21/18 17:00 96 10/21/18 16:00 91 L 10/21/18 14:22 90 L Intake and Output 10/21/18 10/22/18 10/22/18 22:59 06:59 14:59 Intake Total 960 Balance 960 Intake: Oral 960 Other: # Voids 1 2 Results 10/21/18 15:07 10/22/18 03:20 Cardiac Enzymes 10/21/18 10/21/18 10/21/18 Range/Units 15:07 15:07 20:32 AST 21 (17-59) U/L Troponin I <0.012 <0.012 (0.000-0.034) ng/mL 10/22/18 Range/Units 03:20 AST (17-59) U/L Troponin I <0.012 (0.000-0.034) ng/mL Coagulation 10/21/18 Range/Units 15:07 PT 9.6 (9.0-12.0) sec APTT 22.5 (22.0-30.0) sec Lipids 10/22/18 Range/Units 03:20 Triglycerides 85 (<150) mg/dL Cholesterol 211 H (<200) mg/dL HDL Cholesterol 52 (40-60) mg/dL CBC 10/21/18 Range/Units 15:07 WBC 14.1 H (3.8-10.6) k/uL RBC 4.82 (4.30-5.90) m/uL Hgb 15.5 (13.0-17.5) gm/dL Hct 45.6 (39.0-53.0) % Plt Count 315 (150-450) k/uL Comprehensive Metabolic Panel 10/21/18 10/22/18 Range/Units 15:07 03:20 Sodium 143 140 (137-145) mmol/L Potassium 4.4 4.3 (3.5-5.1) mmol/L Chloride 107 107 (98-107) mmol/L Carbon Dioxide 26 23 (22-30) mmol/L BUN 28 H 29 H (9-20) mg/dL Creatinine 1.53 H 1.19 (0.66-1.25) mg/dL Glucose 132 H 142 H (74-99) mg/dL Calcium 9.8 9.4 (8.4-10.2) mg/dL AST 21 (17-59) U/L ALT <6 L (21-72) U/L Alkaline Phosphatase 79 (38-126) U/L Total Protein 7.0 (6.3-8.2) g/dL Albumin 4.3 (3.5-5.0) g/dL Current Medications Generic Name Dose Route Start Last Admin Trade Name Freq PRN Reason Stop Dose Admin Albuterol/Ipratropium 3 ml 10/21/18 22:26 10/22/18 11:42 Duoneb 0.5 Mg-3 Mg/3 Ml Soln INHALATION 3 ml RT-Q4H [facility] Administration Aspirin 325 mg 10/22/18 09:00 10/22/18 10:15 Aspirin PO Not Given DAILY [facility] Atorvastatin Calcium 20 mg 10/22/18 21:00 Lipitor PO HS [facility]ALY Budesonide 1 mg 10/21/18 22:26 10/22/18 08:08 Pulmicort INHALATION 1 mg RT-BID [facility] Administration Desvenlafaxine Succinate 100 mg 10/22/18 09:00 10/22/18 10:15 Pristiq Er PO 100 mg DAILY [facility] Administration Donepezil HCl 5 mg 10/22/18 09:00 10/22/18 10:15 Aricept PO 5 mg DAILY [facility] Administration Enoxaparin Sodium 40 mg 10/21/18 22:30 10/22/18 10:15 Lovenox SQ Not Given DAILY [facility] Lisinopril/HCTZ 1 each 10/22/18 11:30 Zestoretic 10-12.5 PO DAILY [facility] Sodium Chloride 1,000 mls @ 100 mls/hr 10/21/18 22:30 10/22/18 10:15 Saline 0.9% IV Not Given .Q10H [facility] Insulin Aspart 0 unit 10/22/18 07:30 10/22/18 10:00 Novolog SQ Not Given ACHS [facility] Protocol Lamotrigine 100 mg 10/21/18 21:00 10/22/18 10:15 Lamictal PO 100 mg BID [facility] Administration Methylprednisolone Sodium Succinate 40 mg 10/21/18 22:26 10/22/18 10:15 Solu-Medrol IV 40 mg Q8HR [facility] Administration Nicotine Polacrilex 2 mg 10/21/18 20:46 10/21/18 21:34 Nicorette Gum BUCCAL 2 mg Q2HR PRN Administration Nicotine Cravings Nitroglycerin 0.4 mg 10/21/18 16:19 Nitrostat SUBLINGUAL Q5M PRN Chest Pain Pramipexole Dihydrochloride 1 mg 10/21/18 21:00 10/21/18 21:33 Mirapex PO 1 mg HS [facility] Administration Quetiapine Fumarate 200 mg 10/21/18 21:00 10/21/18 21:33 Seroquel PO 200 mg HS [facility] Administration Intake and Output 10/21/18 10/22/18 10/22/18 22:59 06:59 14:59 Intake Total 960 Balance 960 Intake: Oral 960 Other: # Voids 1 2 10/21/18 15:07 10/22/18 03:20
[2018-10-22 11:57] LABS: Glucose,Whole Blood 162 mg/dL (75-99)
--- NOTE | 2018-10-22 15:38 | P.PN ---
Progress Note - Text Progress Note Date: 10/22/18 Chief Complaint: [place] panicky Interval history: This is a pleasant [address] Mccord. Chronic stable medical conditions include diabetes, hypertension, osteoarthritis,. Patient's long- standing smoker. Patient gone to [facility]. He states he suddenly became panicky. Became but anxious agitated somewhat confused. He never lost his balance. Nearly passed out. He felt it was more of a panic attack. He does get it sometimes. Also short of breath and wheezing a bit. No fever no chills. He is quite a bit anxious all the time. Has significant family issues. His eldest son is in the custodial and often cause trouble for his . His has left the house and then with another son. Today-laying in bed. Breathing is better. Got bronchodilators. Seen by cardiology. For stress test tomorrow. No chest pain. Review of systems: Was done for constitutional, cardiovascular, GI, pulmonary. relevant finding as above Current medications are reviewed that include: Bronchodilators and IV Solu-Medrol Physical examination: VITAL SIGNS: 98.2, 94, 17, 148/75, 91% room air GENERAL: Sitting up in the bed, awake EYES: Pupils equal. Conjunctiva normal. HEENT: External appearance of nose and ears normal, oral cavity grossly normal. NECK: JVD not raised; masses not palpable. HEART: First and second heart sounds are normal; no edema. LUNGS: Respiratory rate increased, decreased breath sounds prolonged expiration. ABDOMEN: Soft, nontender, liver spleen not palpable, no masses palpable. PSYCH: Alert and oriented x3; mood and affect anxious appearingl. Investigations, reviewed in the clinical context: Potassium 4.3 creatinine 1.19 White count 14.1, hemoglobin 15.5, potassium 4.4, BUN/creatinine 28, creatinine Patient's renal function in June of this year showed the BUN 29 and a creatinine of 1.1 Troponin 3 negative EKG tracing personally reviewed by me shows normal sinus rhythm nonspecific T- wave changes Chest x-ray film personally reviewed by me shows an expiratory film with some atelectasis Assessment: -Acute COPD exacerbation in a current smoker, improving -Panic attack at the store -Chronic nicotine dependence patient cigarette smoker -Acute renal failure, probably prerenal -Essential hypertension -Primary osteoarthritis -Depression otherwise specified -4 stress echocardiogram tomorrow Plan: Continue current medication treatment plan. Zestoretic was resumed. We'll DC IV fluids later. Switched to oral steroids. Stress test tomorrow. Discussed with patient
[2018-10-22] MEDS: LISINOPRIL-HCTZ 10-12.5 MG 1 EACH TAB PO SCH (16:41)
[2018-10-22 16:42] LABS: Glucose,Whole Blood 143 mg/dL (75-99)
[2018-10-22] MEDS: NICOTINE POLACRILEX 2 MG GUM BUCCAL PRN (17:40)
[2018-10-22 19:29] LABS: Glucose,Whole Blood 280 mg/dL (75-99)
[2018-10-22] MEDS: QUEtiapine 200 MG TAB PO SCH (19:43)
[2018-10-22] MEDS: PRAMIPEXOLE 1 MG TAB PO SCH (19:43)
[2018-10-22 19:44] LABS: Glucose,Whole Blood 422 mg/dL (75-99)
[2018-10-22 19:44] LABS: Glucose,Whole Blood 174 mg/dL (75-99)
[2018-10-22] MEDS ORDERED: ATORVASTATIN 20 MG TAB PO SCH (21:00)
[2018-10-23] MEDS: methylPREDNISolone SOD SUCCI 40 MG/ML 1 ML VIAL IV SCH ×2 (00:24→11:25)
[2018-10-23] MEDS: IPRATROPIUM-ALBUTEROL 3 ML NEB INHALATION SCH ×3 (04:18→11:29)
[2018-10-23 06:39] LABS: Glucose,Whole Blood 140 mg/dL (75-99)
[2018-10-23 07:01] VITALS: RESP 18
[2018-10-23] MEDS: BUDESONIDE 1 MG/2 ML NEBU INHALATION SCH (07:32)
--- NOTE | 2018-10-23 11:09 | P.PN ---
Subjective This is a pleasant 68-year-old male past medical history significant for hypertension, diabetes mellitus, COPD and chronic nicotine dependence. He is seen and examined resting comfortably in no acute distress. He denies any symptoms of chest discomfort, shortness of breath or palpitations. He states he continues to feel mildly lightheaded however has improved greatly since admission. He denies any further symptoms of nausea or vomiting. Blood pressure 116/71 heart rate 79 afebrile maintaining oxygen saturation on room air. Telemetry tracings have been unremarkable. GENERAL: Well-appearing, well-nourished and in no acute distress. NECK: Supple without JVD or thyromegaly. LUNGS: Breath sounds clear to auscultation bilaterally. Respiration equal and unlabored. No wheezes, rales or rhonchi. HEART: Regular rate and rhythm without murmurs, rubs or gallops. S1 and S2 heard. EXTREMITIES: Normal range of motion, no edema. No clubbing or cyanosis. Peripheral pulses intact. ASSESSMENT Near syncope. An acute coronary event has been ruled out. Leukocytosis Baseline EKG abnormality Hypertension Dyslipidemia COPD Chronic nicotine dependence PLAN Proceed with stress test as previously ordered. If stress test is normal he is stable from a cardiac perspective. Event monitor will be set up through the office. Follow up with Dr. Medrano in 2-3 weeks. Nurse Practitioner note has been reviewed, I agree with a documented findings and plan of care. Patient was seen and examined. Objective - Vital Signs Vital signs: Vital Signs Temp 97.6 F 10/23/18 06:59 Pulse 92 10/23/18 07:49 Resp 18 10/23/18 06:59 BP 116/71 10/23/18 06:59 Pulse Ox 91 L 10/23/18 06:59 Intake & Output 10/22/18 10/23/18 10/23/18 18:59 06:59 18:59 Intake Total 960 Balance 960 Intake: Oral 960 Other: Voiding Method Toilet # Voids 2 1 - Labs CBC & Chem 7: 10/21/18 15:07 10/22/18 03:20 Labs: Abnormal Lab Results - Last 24 Hours (Table) 10/22/18 10/22/18 10/22/18 Range/Units 11:56 16:41 19:27 POC Glucose (mg/dL) 162 H 143 H 280 H (75-99) mg/dL 10/22/18 10/22/18 10/23/18 Range/Units 19:42 19:43 06:36 POC Glucose (mg/dL) 422 H 174 H 140 H (75-99) mg/dL
[2018-10-23] MEDS: INSULIN ASPART (NovoLOG) 100 UNIT/ML VIAL SQ SCH ×2 (11:15→13:10)
[2018-10-23] MEDS: ASPIRIN 325 MG TAB PO SCH (11:25)
[2018-10-23] MEDS: ENOXAPARIN 40 MG/0.4 ML SYRINGE SQ SCH (11:25)
[2018-10-23] MEDS: DESVENLAFAXINE SUCCINATE 50 MG TAB.ER.24H PO SCH (11:26)
[2018-10-23] MEDS: DONEPEZIL 5 MG TAB PO SCH (11:26)
[2018-10-23] MEDS: LISINOPRIL-HCTZ 10-12.5 MG 1 EACH TAB PO SCH (11:26)
[2018-10-23] MEDS: lamoTRIgine 100 MG TAB PO SCH (11:26)
[2018-10-23 11:27] VITALS: BP 128/77; TEMP 98.1
[2018-10-23] MEDS: NICOTINE POLACRILEX 2 MG GUM BUCCAL PRN (11:27)
--- NOTE | 2018-10-23 11:31 | P.STRESS ---
- Stress Test Note Stress Test Results/Findings: Exam Performed: stress echo exercise with con Exam Date: 10/23/18 Reason for Exam: CHEST PAIN Height: 5 ft 3 in Weight: 90.718 kg Protocol: JAMISON Stage: 3 Duration of Exercise: 7:00 Resting Heart Rate: 73 Resting Blood Pressure: 112/67 Maximum Achieved Heart Rate: 129 Maximum Achieved Blood Pressure: 159/73 85% PMHR: 131 100% PMHR: 154 METS: 8.3 Technologist Comment: Stress Test Results/Findings: This is a 68-year-old male who was admitted to the hospital with the syncope. Patient has history of hypertension, diabetes, hypercholesteremia, and smoking history. Stress data: Baseline EKG showed a sinus rhythm with normal [place] interval and QRS duration. Blood pressure test is 112/67 with pulse rate of 73. Patient walked on the Jamison protocol for 7 minutes achieving a maximal heart rate of 1:30 with blood pressure 159/73.. EKGs taken during and after exercise did not reveal any changes of ischemia. Echo data: Baseline echo images show normal wall motion and thickening. Exercise echo images showed augmentation of wall motion and thickening in all the segments. Final impression: #1. Negative stress test #2. Negative stress echo.
[2018-10-23 11:39] VITALS: PULSE 98
[2018-10-23 11:51] LABS: Glucose,Whole Blood 118 mg/dL (75-99)
--- NOTE | 2018-10-23 18:46 | P.DS ---
Providers Date of admission: 10/21/18 19:02 Expected date of discharge: 10/23/18 Attending physician: Doug Reyes Consults: 10/21/18 16:19 Consult Physician Urgent Consulting Provider: [facility] Consult Reason/Comments: near syncope Do you want consulting provider notified?: Yes Primary care physician: Hossein Mccord [facility] Course: Interval history: This is a pleasant [address] Mccord. Chronic stable medical conditions include diabetes, hypertension, osteoarthritis,. Patient's long- standing smoker. Patient gone to [facility]. He states he suddenly became panicky. Became but anxious agitated somewhat confused. He never lost his balance. Nearly passed out. He felt it was more of a panic attack. He does get it sometimes. Also short of breath and wheezing a bit. No fever no chills. He is quite a bit anxious all the time. Has significant family issues. His eldest son is in the assisted and often cause trouble for his . His has left the house and then with another son. Treated for COPD exacerbation with bronchodilators and IV steroids. Responded well. Doing much better. Did undergo a stress echocardiogram that was negative. Patient reminded about to stop smoking Consultation: Dr. Donald Gomez from cardiology Physical examination: VITAL SIGNS: 98.1, 77, 18, 128/77, 91% room air GENERAL: Propped on bed, comfortable EYES: Pupils equal. Conjunctiva normal. HEENT: External appearance of nose and ears normal, oral cavity grossly normal. NECK: JVD not raised; masses not palpable. HEART: First and second heart sounds are normal; no edema. LUNGS: Respiratory rate increased, improved air entry ABDOMEN: Soft, nontender, liver spleen not palpable, no masses palpable. PSYCH: Alert and oriented x3; mood and affect anxious appearingl. Investigations, reviewed in the clinical context: Stress echocardiogram negative Patient's renal function in June of this year showed the BUN 29 and a creatinine of 1.1 Troponin 3 negative EKG tracing personally reviewed by me shows normal sinus rhythm nonspecific T- wave changes Chest x-ray film personally reviewed by me shows an expiratory film with some atelectasis Assessment: -Acute COPD exacerbation in a current smoker, improving -Panic attack at the store -Chronic nicotine dependence patient cigarette smoker -Acute renal failure, probably prerenal -Essential hypertension -Primary osteoarthritis -Depression otherwise specified - line Disposition: Home Patient Condition at Discharge: Stable Plan - Discharge Summary New Discharge Prescriptions: New Ipratropium [place] [Atrovent Hfa] 2 puff INHALATION QID #1 inhaler predniSONE 10 mg PO DAILY #30 tab Albuterol Inhaler [Ventolin Hfa Inhaler] 1 - 2 puff INHALATION Q6HR PRN #1 inhaler PRN Reason: Wheezing Continue lamoTRIgine [LaMICtal Xr] 100 mg PO BID Pramipexole [Mirapex] 1 mg PO HS Lisinopril-Hctz 10-12.5 mg [Zestoretic 10-12.5] 1 tab PO BID Donepezil [Aricept] 5 mg PO DAILY Desvenlafaxine Succinate [Pristiq ER] 100 mg PO DAILY QUEtiapine FUMARATE [SEROquel] 200 mg PO HS Discharge Medication List Lisinopril-Hctz 10-12.5 mg [Zestoretic 10-12.5] 1 tab PO BID 08/28/18 [History] Pramipexole [Mirapex] 1 mg PO HS 08/28/18 [History] lamoTRIgine [LaMICtal Xr] 100 mg PO BID 08/28/18 [History] Desvenlafaxine Succinate [Pristiq ER] 100 mg PO DAILY 10/02/18 [History] Donepezil [Aricept] 5 mg PO DAILY 10/02/18 [History] QUEtiapine FUMARATE [SEROquel] 200 mg PO HS 10/21/18 [History] Albuterol Inhaler [Ventolin Hfa Inhaler] 1 - 2 puff INHALATION Q6HR PRN #1 inhaler 10/23/18 [Rx] Ipratropium [place] [Atrovent Hfa] 2 puff INHALATION QID #1 inhaler 10/23/18 [Rx] predniSONE 10 mg PO DAILY #30 tab 10/23/18 [Rx] Follow up Appointment(s)/Referral(s): Anil Medrano MD [STAFF PHYSICIAN] - 11/22/18 1:45 pm (car supervisor event monitor from the office upon discharge. Follow up appointment with Dr. Medrano in the office thereafter on November 22 at 1:45 pm. ) Hossein Mccord DO [Primary Care Provider] - 1-2 days Discharge Disposition: HOME SELF-CARE
--- NOTE | 2018-10-26 17:00 | ECHOS ---
Stress Test Results/Findings: Exam Performed: stress echo exercise with con Exam Date: 10/23/18 Reason for Exam: CHEST PAIN Height: 5 ft 3 in Weight: 90.718 kg Protocol: JAMISON Stage: 3 Duration of Exercise: 7:00 Resting Heart Rate: 73 Resting Blood Pressure: 112/67 Maximum Achieved Heart Rate: 129 Maximum Achieved Blood Pressure: 159/73 85% PMHR: 131 100% PMHR: 154 METS: 8.3 Technologist Comment: Stress Test Results/Findings: This is a 68-year-old male who was admitted to the hospital with the syncope. Patient has history of hypertension, diabetes, hypercholesteremia, and smoking history. Stress data: Baseline EKG showed a sinus rhythm with normal AK interval and QRS duration. Blood pressure test is 112/67 with pulse rate of 73. Patient walked on the Jamison protocol for 7 minutes achieving a maximal heart rate of 1:30 with blood pressure 159/73.. EKGs taken during and after exercise did not reveal any changes of ischemia. Echo data: Baseline echo images show normal wall motion and thickening. Exercise echo images showed augmentation of wall motion and thickening in all the segments. Final impression: #1. Negative stress test #2. Negative stress echo. AIDEE
== END 2018-10-23 13:50 | disposition home or self-care (01) ==
LOC: EC 14:14 → 1SOBS 19:02
PROVIDERS: ADMIT Hospitalist; ATTEND Hospitalist
DX: J44.1 Chronic obstructive pulmonary disease with (acute) exacerbation (principal); F41.0 Panic disorder [episodic paroxysmal anxiety]; R94.31 Abnormal electrocardiogram [ECG] [EKG]; R00.2 Palpitations; R55 Syncope and collapse; R06.02 Shortness of breath; R41.0 Disorientation, unspecified; R45.1 Restlessness and agitation; R06.2 Wheezing; R42 Dizziness and giddiness; R61 Generalized hyperhidrosis; R11.0 Nausea; D72.829 Elevated white blood cell count, unspecified; F17.210 Nicotine dependence, cigarettes, uncomplicated; N17.9 Acute kidney failure, unspecified; I10 Essential (primary) hypertension; M19.91 Primary osteoarthritis, unspecified site; E11.9 Type 2 diabetes mellitus without complications; E78.5 Hyperlipidemia, unspecified; E78.00 Pure hypercholesterolemia, unspecified; F31.9 Bipolar disorder, unspecified; F41.9 Anxiety disorder, unspecified; N42.9 Disorder of prostate, unspecified; G47.30 Sleep apnea, unspecified; Z99.89 Dependence on other enabling machines and devices; Z79.899 Other long term (current) drug therapy; Z83.2 Family history of diseases of the blood and blood-forming organs and certain disorders involving the immune mechanism; Z81.1 Family history of alcohol abuse and dependence
CPT/HCPCS: 96372 ×2; 96374; 96376 ×2; 96361; 99285; 36415; 94640 ×5; 94760; 93005; 85379; 80061; 80053; 80048; 83735; 84484 ×2; 85025; 85610; 85730; 71046; G0378 ×3; C8930; J2920 ×3; J1650 ×2; Q9950; 93351

== ENCOUNTER → 2018-11-08 | Outpatient (CLI) | payer MEDICARE ==
--- NOTE | 2018-11-08 09:10 | CT ---
EXAMINATION TYPE: CT iac wo con DATE OF EXAM: 11/08/2018 COMPARISON: 06/22/2018 HISTORY: 68-year-old male with cholesteatoma, Mastoiditis TECHNIQUE: Contiguous axial scanning of the temporal bones without IV contrast. Coronal reconstructio ns performed. CT DLP: 142.7 mGycm Automated exposure control for dose reduction was used. FINDINGS: Scattered mild mucosal thickening ethmoid air cells. Additional mild mucosal thickening within the ma xillary sinuses and left sphenoid sinus. Relating nasal septum. 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 There may be some residual adherent secretions or scarring in this region, refer to axial image 17 through 22. There is now clearance of the left mastoid air cells and middle ear cavity. No ossicular erosions or blunting of the scutum on either side. No dehiscence of the superior semicircular canals. The bony labyrinths appear satisfactory. The vestibular and cochlear aqueducts are well visualized. Minimal mottled density superficial to the right tympanic membrane, suspect debris. This can be corre lated with direct inspection. The external auditory canals are otherwise patent. Facial nerve canals and IACs are satisfactory. IMPRESSION: 1. QUERY INTERVAL RESECTION OF THE PREVIOUS POSTERIOR NASOPHARYNGEAL MASS. SOME MILD RESIDUAL ADHEREN T SECRETIONS OR SCARRING MAY BE PRESENT IN THIS REGION. 2. INTERVAL PNEUMATIZATION OF THE LEFT MASTOID AIR CELLS AND MIDDLE EAR CAVITY. 3. SMALL AMOUNT OF MOTTLED DENSITY SUPERFICIAL TO THE RIGHT TYMPANIC MEMBRANE. SUSPECT CERUMEN OR OTH ER DEBRIS. CORRELATE WITH DIRECT INSPECTION IF INDICATED. 4. MILD CHRONIC DELONG SINUS DISEASE.
== END | disposition home or self-care (01) ==
LOC: RADCTMAIN 08-31 09:05
PROVIDERS: ATTEND Otolaryngology
DX: H73.891 Other specified disorders of tympanic membrane, right ear (principal); H71.92 Unspecified cholesteatoma, left ear; H70.92 Unspecified mastoiditis, left ear
CPT/HCPCS: 70480

== ENCOUNTER → 2019-01-30 | Outpatient (CLI) | payer MEDICARE ==
--- NOTE | 2019-01-30 17:42 | CONS ---
CONSULTATION REASON FOR CONSULTATION: Sleep apnea. This patient has an established diagnosis of sleep apnea. Back in 2011 the patient had a polysomnogram. The patient was diagnosed having severe RYLEE with an AHI of 79. He used BiPAP at a pressure of 18/14 cm of water. Back then he used to weight 223 pounds. His machine is currently not functioning right. He is having issues in using his older- generation [employer] unit. He has not been using it for almost a year. He is coming in for reevaluation, knowing that his symptoms have gotten worse, and the patient is back snoring, quitting breathing. His sleep is fragmented and he is very tired and sleepy during the day. He goes to bed around midnight and wakes up at 9 a.m. in the morning. Despite this, he is very somnolent and sleepy. His current Dallas score is 14. He feels that he is at increased risk of falling asleep while driving his car. I noted that he has lost around 7 pounds since his last evaluation. No other new complaints otherwise for now. He has depression. He has no other new-onset medical problems or comorbidities other than his chronic psychiatric problems, which include anxiety, panic and depression. PAST MEDICAL HISTORY: 1. Obstructive sleep apnea; details discussed above. 2. Severe depression, anxiety and panic. 3. Obesity. SURGICAL HISTORY: Surgical history includes total knee replacement and hernia repair. DRUG ALLERGIES: NOT KNOWN. OUTPATIENT MEDICATION: Outpatient medication includes: 1. Seroquel 200 mg at bedtime. 2. Donepezil 5 mg at bedtime. SOCIAL HISTORY: The patient is a smoker. No history of alcoholism. No history of IV drugs. FAMILY HISTORY: Mother at the age of 36 from complications of . His father was alcoholic and of complications of alcohol drinking. REVIEW OF SYSTEMS: Fourteen-point review of systems was done. Positive findings are all mentioned above in the history of present illness. For now he is quite symptomatic. He wakes up tired and sleepy during the day. He has trouble paying attention. No memory. No concentration, as the patient's sleep is very fragmented. No history of motor vehicle accidents because of feeling drowsy or sleepy; however is concerned about that. He takes naps, 1 or 2 a day. He has nocturia. He sleeps on his side. He has ongoing positive anxiety and depression. No sleepwalking or sleeptalking. No palpitations. No grinding. PHYSICAL EXAMINATION: VITAL SIGNS: BP 147/82, pulse 96, respirations 16, temperature 98.2. Saturation is 92% on room air. Height is 5 feet 4 inches. Weight 216. Neck size 17 inches. BMI 37. GENERAL APPEARANCE: Calm, comfortable. HEAD: Atraumatic, normocephalic. NECK: Supple. No JVD. No goiter or neck masses. Mallampati class IV. LUNGS: Diminished; otherwise clear. HEART: Heart sounds are regular rate and rhythm. Normal S1, S2. No S3, S4. No murmurs. ABDOMEN: Soft, nontender. No organomegaly. EXTREMITIES: No edema. No cyanosis or clubbing. Neurologically the patient is awake and alert and there are no focal neurological deficits. IMPRESSION: 1. Severe symptomatic obstructive sleep apnea with an apnea/hypopnea index of 79 based on a sleep study that was done in 2011. The patient is off treatment for now and the patient has become quite symptomatic and sleepy. He has a malfunctioning CPAP unit and he is very interested in updating his current unit. 2. Obesity with a body mass index of 37. 3. Chronic anxiety and depression. 4. History of panic attacks. PLAN: 1. Encourage weight loss. 2. I was able to fit this patient with an AirFit P30I nose pillow. Despite his higher BiPAP requirements in the past, the patient was able to use a nose pillow, and he prefers to use one. For that reason I have fitted him to an AirFit P30I large-sized nose pillow. Nevertheless, the patient will need CPAP/BiPAP titration. Following that, the patient will be given the appropriate machine, which probably is going to be a BiPAP, and he will see me back in 30 to 90 days after obtaining his machine for a compliancy check. He is somnolent and sleepy. He is quite symptomatic. I asked him to avoid driving, especially when he is feeling drowsy or sleepy. He is already taking naps during the day to counteract his hypersomnia. Will continue to follow. I am hoping that his symptoms will improve once the patient undergoes titration and initiates BiPAP treatment. MMODL / IJN: [id number] /
== END ==
LOC: SLEEP 14:02
PROVIDERS: ATTEND Internal Medicine Critical Care Medicine
DX: G47.33 Obstructive sleep apnea (adult) (pediatric) (principal); E66.9 Obesity, unspecified; F41.8 Other specified anxiety disorders; Z86.59 Personal history of other mental and behavioral disorders; Z68.37 Body mass index [BMI] 37.0-37.9, adult; Z79.899 Other long term (current) drug therapy; Z99.89 Dependence on other enabling machines and devices
CPT/HCPCS: 99211

== ENCOUNTER → 2019-06-12 | Outpatient (CLI) | payer MEDICARE ==
--- NOTE | 2019-06-12 21:58 | PN ---
PROGRESS NOTE 6` 9-year-old male patient coming in for a compliancy check regarding her obstructive sleep apnea. He is very happy with the CPAP treatment. The patient was diagnosed having severe obstructive sleep apnea. The patient was diagnosed to have an AHI of 79 consistent with severe RYLEE. Currently receiving BiPAP therapy at a pressure of 12/8 cm of water. On the compliance data that was collected, the patient has been averaging around 13 hours of CPAP use per night. His CPAP use for more than 4 hours is 100%. Current BiPAP pressure is around 12/8. His AHI is down to 1.9. His leak is around 25 L/minutes. Tidal volume is at 400 mL and he has a minute ventilation of 8.3, with a respiratory rate of 20. He is utilizing an air fit P30 I large-sized nose piece. Since his last evaluation, he has lost around 2 pounds. He is very happy with his treatment. He does not want to make any changes. He is much more alert and awake during the day. His Philadelphia score is down to zero. REVIEW OF SYSTEMS: Fourteen-point review of system was done. Positive findings are all mentioned above in history of present illness. No major hypersomnia or sleepiness during the day. No nocturnal chest pain. No heartburn or dysphagia, flatulence, abdominal distention or gas. No altered mentation during the day. No history of any motor vehicle accident with a feeling of drowsiness or sleepiness. No angina. No shortness of breath. PHYSICAL EXAMINATION: VITAL SIGNS: BP is 148/87, pulse 92, respirations 20, temperature 98.7, weight 221, and saturation 92% on room air. Philadelphia score is a 0. GENERAL APPEARANCE: Calm, comfortable. Head is atraumatic, normocephalic. NECK: Supple. No JVD. No goiter. No neck mass. LUNGS: Clear to auscultation. HEART: Heart sounds are regular rate and rhythm. Normal S1, S2. No S3, S4. No murmurs. ABDOMEN: Soft, nontender. No organomegaly. EXTREMITIES: No edema. No cyanosis or clubbing. IMPRESSION: 1. Severe RYLEE, AHI 79, currently on a BiPAP pressure of 12/8. 2. Hypersomnia, recovered. Philadelphia score is 0. 3. Obesity: Current weight is stable. BMI 37. 4. Chronic anxiety/depression. 5. History of panic attacks. PLAN: 1. Continue BiPAP therapy at same level of pressure 03/18. 2. Continue using AirFit P30i nose piece, large size. 3. Implement good sleep hygiene measures. 4. See me back in a year's time in followup. His treatment is successful. No need for any further adjustments at this point in time. MMODL / IJN: [id number] /
== END | disposition home or self-care (01) ==
LOC: SLEEP 14:47
PROVIDERS: ATTEND Internal Medicine Critical Care Medicine
DX: G47.33 Obstructive sleep apnea (adult) (pediatric) (principal); E66.9 Obesity, unspecified; Z68.37 Body mass index [BMI] 37.0-37.9, adult; Z86.59 Personal history of other mental and behavioral disorders; Z99.89 Dependence on other enabling machines and devices

== ENCOUNTER → 2020-03-19 | Outpatient (CLI) | payer MEDICARE | END | disposition home or self-care (01) | LOC: CPPFTMAIN 14:44 | PROVIDERS: ATTEND Family Medicine | DX: R94.2 Abnormal results of pulmonary function studies (principal); G47.33 Obstructive sleep apnea (adult) (pediatric) | CPT/HCPCS: 94060; 94726; 94729 ==